=== PATIENT | male | born 1960 | race Hispanic/Latino ===

== ENCOUNTER 2017-04-15 05:02 | Observation (INO) | payer SELFPAY ==
[2017-04-15 06:16] LABS: #Lymphocytes 0.7 thou/uL (1.20-3.40); #Monocytes 0.6 thou/uL (0.11-0.59); #Neutrophils 7.2 thou/uL (1.40-6.50); %Basophils 0.2 % (0.0-1.0); %Eosinophils 0.1 % (0.0-10.0); %Lymphocytes 7.9 % (21.0-51.0); %Monocytes 7.3 % (0.0-10.0); %Neutrophils 84.5 % (42.0-75.0); ALT (SGPT) 80 U/L (8-55); AST (SGOT) 263 U/L (5-34); Albumin 2.5 g/dL (3.5-5.0); Alkaline Phosphatase 128 U/L (40-150); Anion Gap 14 mmol/L (10-20); BUN (Urea Nitrogen) 13 mg/dL (8.4-25.7); Bilirubin, Total 6.1 mg/dL (0.2-1.2); Calc. Creatinine Clearance 0 mL/min (70-130); Calcium 7.7 mg/dL (7.8-10.44); Carbon Dioxide 23 mmol/L (22-29); Chloride 99 mmol/L (98-107); Estimated GFR-MDRD Greater than 90; Globulin 4.8 g/dL (2.4-3.5); Glucose 117 mg/dL (70-105); Hemoglobin 13.3 g/dL (14.0-18.0); Mean Corpuscular HGB CONC 32.1 g/dL (32.0-36.0); Mean Corpuscular Hemoglobin 31.6 pg (27.0-31.0); Mean Corpuscular Volume 98.5 fl (80.0-94.0); Mean Platelet Volume 10.5 fL (7.4-10.4); Platelet Count 24 thou/uL (130-400); Potassium 4.6 mmol/L (3.5-5.1); Protein, Total 7.3 g/dL (6.0-8.3); RBC Distribution Width 22.1 % (11.5-14.5); Red Blood Cell (RBC) Count 4.19 mill/uL (4.70-6.10); Sodium 131 mmol/L (136-145); White Blood Cell (WBC) Count 8.6 thou/uL (4.8-10.8)
[2017-04-15 06:53] LABS: PTT 36.5 SEC (22.9-36.1)
[2017-04-15 07:10] LABS: Troponin I 0.033 ng/mL (< 0.028)
[2017-04-15 07:21] LABS: CKMB 21.3 ng/mL (0-6.6)
[2017-04-15] MEDS ORDERED: Furosemide 40 MG/4 ML VIAL ONE (09:10)
--- NOTE | 2017-04-15 09:19 | RAD ---
SINGLE VIEW CHEST: Date: 04/15/17 COMPARISON: 03/24/16. HISTORY: Shortness of breath that began suddenly this morning and dyspnea. FINDINGS: Single view of the chest shows a normal sized cardiomediastinal silhouette. There is no evidence of c onsolidation, mass, or pleural effusion. The bones are unremarkable. IMPRESSION: No evidence of acute cardiopulmonary disease. POS: [facility]
[2017-04-15 09:34] LABS: Hemoglobin A1c 5.4 % (4.0-6.0)
[2017-04-15 09:41] LABS: Troponin I 0.029 ng/mL (< 0.028)
[2017-04-15 09:45] LABS: CKMB 16.2 ng/mL (0-6.6)
[2017-04-15 10:56] LABS: Lactic Acid 2.4 mmol/L (0.5-2.2)
[2017-04-15 11:06] LABS: Troponin I 0.028 ng/mL (< 0.028)
[2017-04-15] MEDS ORDERED: Acetaminophen 325 MG TAB PO PRN (11:17)
[2017-04-15] MEDS ORDERED: Ondansetron ODT 4 MG TAB PO PRN (11:17)
[2017-04-15] MEDS ORDERED: Famotidine 20 MG TAB PO SCH (11:30)
[2017-04-15 12:14] VITALS: BMI 36.8
[2017-04-15] MEDS: Nadolol 40 MG TAB PO SCH ×2 (12:22→20:36)
[2017-04-15] MEDS: Furosemide 40 MG/4 ML VIAL SLOW IVP SCH ×3 (12:22→20:23)
[2017-04-15] MEDS: Spironolactone 25 MG TAB PO SCH (12:22)
[2017-04-15 13:14] LABS: Troponin I 0.026 ng/mL (< 0.028)
--- NOTE | 2017-04-15 15:51 | HP ---
DATE OF ADMISSION: 04/15/2017 PRIMARY CARE PHYSICIAN: Rocio. CHIEF COMPLAINT: Shortness of breath. HISTORY OF PRESENT ILLNESS: Mr. Riley is a 57-year-old male with history of hepatiti s C, cirrhosis, prior upper gastrointestinal bleed, portal hypertensive gastropathy, and possible tangela betes, who presented to the emergency department via EMS for 24 hours of shortness of breath. The patient relates a history of increasing bilateral lower extremity edema for about a week. He saw his PCP and was restarted medicines yesterday. He has had increasing shortness of breath, so presen nohelia to the emergency department via EMS. He was noted to be hypoxic, bilateral lower extremity edema, bilateral rales, and we were subsequentl y called for admission. Per patient history, he tells me he has been off his medicines for about a month. He got them refill ed yesterday and took x1 dose, but continued to be short of breath. Per the records, EMS gave him 125 mg Solu-Medrol IV, 0.3 mg of epinephrine IM, sublingual nitroglycer in x2 and 4 DuoNebs. Currently, he received IV Lasix in the ER, has good urine output and is breathing much better, sattin g well on 2 liters. No other current complaints. Denies any chest pain, nausea or vomiting, diarrhe a or constipation. No sweats or diaphoresis. PAST MEDICAL HISTORY: 1. Hepatitis C, untreated. 2. Cirrhosis, untreated. 3. Portal hypertensive gastropathy. 4. History of upper GI variceal bleeding. 5. Possible diabetes. 6. Ongoing alcohol abuse. PAST SURGICAL HISTORY: Includes an EGD with liver banding of a grade III esophageal varices on 04/29. HOME MEDICATIONS: 1. Nadolol 40 mg p.o. b.i.d. 2. Lasix 40 mg p.o. daily. 3. Aldactone 50 mg p.o. daily. ALLERGIES: NKDA. FAMILY HISTORY: Negative for clotting or bleeding disorder. No immune dysfunction. SOCIAL HISTORY: Alcohol about a 6-pack per day. No IV drug use. No tobacco. No family currently. REVIEW OF SYSTEMS: A 10-point review of systems was performed, negative for all other systems except stated per HPI. PHYSICAL EXAMINATION: VITAL SIGNS: Temperature 99.6, pulse 86, blood pressure 110/99, respiratory 28, 95% on 2 liters nasa l cannula. GENERAL: He is awake. He is alert. He is oriented x3. He is a disheveled looking m ana rosa, in no acute distress. HEENT: Normocephalic, atraumatic. Pupils equal and reactive bilaterally. Mucous membranes are mois t. He has what looks like mild scleral icterus. NECK: Supple. There is no lymphadenopathy, JVD or thyromegaly. LUNGS: Good air movement bilaterally with symmetrical chest excursion. There are no wheezes. He reed s bilateral lateral and posterior rales present. CARDIOVASCULAR: He is normocardic and regular. Normal S1 and S2. I hear no S4. No S3. No murmurs . ABDOMEN: Soft, nontender, nondistended. No mass or organomegaly. No rebound, rigidity or guarding. EXTREMITIES: Show 2+ edema in the bilateral lower extremities. He has 2+ bounding pulses. SKIN: Otherwise warm, moist, and well perfused. He has no other rashes or lesions. NEUROLOGIC: Cranial nerves II-XII are grossly intact without any focal neurologic deficits. MUSCULOSKELETAL: Normal to inspection. No joint inflammation. No palpable effusions. LABORATORY DATA: CMP is fairly normal. Creatinine 0.84, sodium 131, potassium 4.6, chloride 99, bic arbonate 23, glucose 103 and calcium normal. Albumin is low at 2.5. CBC showed a white count of 8.6, platelet count 24,000, hemoglobin of 13.2, hematocrit of 41.3. BNP is elevated at 784.1. Lactic acid 2.9. CK-MB of 21.3, troponin I 0.033. INR is 2.0. Chest x-ray report is pending. It looks like bilateral pulmonary edema. ASSESSMENT AND PLAN: 1. Acute hypoxemic respiratory failure secondary to volume overload and diastolic congestive heart f ailure. 2. Acute on chronic diastolic congestive heart failure secondary to cirrhosis. 3. Medical noncompliance. The patient has been off his medicines for a month, likely just deficienc y of his regular Lasix and Aldactone. 4. Chronic alcohol abuse. 5. Possible diabetes mellitus type 2, normal sugar here. Watch his sugars. 6. Thrombocytopenia secondary to cirrhosis. 7. Chronic hepatitis C. 8. History of esophageal varices, grade III, no evidence of current bleed. 9. Abnormal troponin, CK-MB, likely demand ischemia. We will trend these out.
[2017-04-15 17:50] LABS: CKMB 16.3 ng/mL (0-6.6)
[2017-04-15] MEDS: Famotidine 20 MG TAB PO SCH (20:23)
[2017-04-15] MEDS ORDERED: FLU VACC QS2017-18 36 mo. & older 0.5 ML SYRINGE IM ONE (21:00)
[2017-04-16 01:20] LABS: Troponin I 0.019 ng/mL (< 0.028)
[2017-04-16 01:22] LABS: CKMB 16.6 ng/mL (0-6.6)
[2017-04-16 05:34] LABS: Anion Gap 11 mmol/L (10-20); BUN (Urea Nitrogen) 28 mg/dL (8.4-25.7); Calc. Creatinine Clearance 146 mL/min (70-130); Calcium 7.1 mg/dL (7.8-10.44); Carbon Dioxide 24 mmol/L (22-29); Chloride 97 mmol/L (98-107); Estimated GFR-MDRD Greater than 90; Glucose 173 mg/dL (70-105); Magnesium 1.6 mg/dL (1.6-2.6); Potassium 4.1 mmol/L (3.5-5.1); Sodium 128 mmol/L (136-145)
[2017-04-16 06:32] LABS: Hemoglobin 11.8 g/dL (14.0-18.0); Mean Corpuscular HGB CONC 31.8 g/dL (32.0-36.0); Mean Corpuscular Hemoglobin 31.1 pg (27.0-31.0); Mean Corpuscular Volume 97.6 fl (80.0-94.0); Mean Platelet Volume 16.3 fL (7.4-10.4); Platelet Count 13 thou/uL (130-400); RBC Distribution Width 21.8 % (11.5-14.5); Red Blood Cell (RBC) Count 3.81 mill/uL (4.70-6.10)
[2017-04-16 06:53] LABS: #Lymphocytes 0.6 thou/uL (1.20-3.40); #Monocytes 0.7 thou/uL (0.11-0.59); #Neutrophils 5.7 thou/uL (1.40-6.50); %Lymphocytes 8.9 % (21.0-51.0); %Monocytes 10.3 % (0.0-10.0); %Neutrophils 80.8 % (42.0-75.0); PLT Morphology Comment Appears Decreased
[2017-04-16] MEDS ORDERED: Furosemide 40 MG TAB PO SCH (09:00)
[2017-04-16] MEDS: Nadolol 40 MG TAB PO SCH (09:27)
[2017-04-16] MEDS: Famotidine 20 MG TAB PO SCH (09:27)
[2017-04-16] MEDS: Spironolactone 25 MG TAB PO SCH (09:27)
--- NOTE | 2017-04-16 11:55 | DIS ---
DATE OF ADMISSION: 04/15/2017 DATE OF DISCHARGE: 04/16/2017 DISCHARGE DIAGNOSES: 1. Acute pulmonary edema secondary to medical nonadherence. 2. Hypertension. 3. Hepatitis C. 4. Cirrhosis. 5. Thrombocytopenia secondary to cirrhosis. 6. Acute hypoxemic respiratory failure, resolved. 7. Medical nonadherence. CONSULTATIONS: None. PROCEDURES: None. HOSPITAL COURSE: Mr. Riley is a 57-year-old male with cirrhosis who has been out of his medicines for over a month. He has not been taking his nadolol, Lasix, or spironolactone. He be came acutely short of breath on 04/15/2017, after a week of increasing shortness of breath. EMS was activated. He was hypoxic on their arrival and was requiring oxygen to maintain saturations. In the emergency department, he was given IV Lasix. We are called for admission. The patient was seen and examined by me. She was placed in observation and restarted his home medica tions. He received IV Lasix overnight and restarted on p.o. medicines today. Today, his lungs are c ompletely clear, he is feeling much better and was weaned off oxygen, satting 90% on room air. He wa s stable for discharge with outpatient followup. PHYSICAL EXAMINATION: The patient was seen and examined on the day of discharge. Discharge plan and disposition were discussed with the patient [id number] at the bedside. DISCHARGE MEDICATIONS: 1. Nadolol 40 mg p.o. b.i.d. 2. Lasix 40 mg p.o. daily. 3. Spironolactone 50 mg p.o. daily. DISCHARGE DIET: Heart healthy recommended. DISCHARGE ACTIVITY: Per cardiopulmonary limits. FOLLOWUP APPOINTMENTS: Dyana, his primary care physician within a week. DISCHARGE CONDITION: Stable. DISPOSITION: He is being discharged home via private vehicle for outpatient followup. INSTRUCTIONS: Take medicines as prescribed. He has had them filled on 04/15/2017 and does has a [facility] [employer] supply.
[2017-04-16 12:28] VITALS: BP 145/86; TEMP 98.1
--- NOTE | 2017-04-25 21:51 | EKG ---
Test Reason : Blood Pressure : / mmHG Vent. Rate : 085 BPM Atrial Rate : 085 BPM P-R Int : 146 ms QRS Dur : 084 ms QT Int : 418 ms P-R-T Axes : 009 047 057 degrees QTc Int : 497 ms Normal sinus rhythm Prolonged QT Abnormal ECG Confirmed by JF TAO ([id number]), photographic editor AXEL HERNANDEZ ([id number]) on 04/25/2017 9:50:07 PM Referred By: Confirmed By:JF TAO
== END 2017-04-16 13:55 | disposition home or self-care (01) ==
LOC: ERS 05:02 → ERHOLD 08:00 → INTOOBSV 08:00 → 2SW 11:57
PROVIDERS: ADMIT Family Medicine; ATTEND Family Medicine
DX: J81.0 Acute pulmonary edema (principal); I10 Essential (primary) hypertension; B19.20 Unspecified viral hepatitis C without hepatic coma; K74.60 Unspecified cirrhosis of liver; D69.6 Thrombocytopenia, unspecified; J96.01 Acute respiratory failure with hypoxia; K76.6 Portal hypertension; K31.89 Other diseases of stomach and duodenum; F10.10 Alcohol abuse, uncomplicated; I50.33 Acute on chronic diastolic (congestive) heart failure; Z91.14 Patient's other noncompliance with medication regimen; Z79.899 Other long term (current) drug therapy; Z98.890 Other specified postprocedural states
CPT/HCPCS: 36415; 71045; 80048; 80053; 82553; 83036; 83605; 83735; 83880; 84484; 85025; 85610; 85730; 90471; 90682; 90732; 93005; 93306; 94640; 94760; 96374; 96376; G0008; G0009; G0378; J1940; J7620; Q2036

== ENCOUNTER 2018-01-19 07:33 | Inpatient (IN) | payer SELFPAY ==
[2018-01-19 09:36] LABS: #Lymphocytes 0.7 thou/uL (1.20-3.40); #Monocytes 0.5 thou/uL (0.11-0.59); #Neutrophils 2.4 thou/uL (1.40-6.50); %Basophils 0.7 % (0.0-1.0); %Eosinophils 0.7 % (0.0-10.0); %Monocytes 14.7 % (0.0-10.0); Hemoglobin 10.5 g/dL (14.0-18.0); Mean Corpuscular HGB CONC 32.5 g/dL (32.0-36.0); Mean Corpuscular Hemoglobin 32.8 pg (27.0-31.0); Platelet Count 34 thou/uL (130-400); RBC Distribution Width 19.6 % (11.5-14.5); Red Blood Cell (RBC) Count 3.22 mill/uL (4.70-6.10); White Blood Cell (WBC) Count 3.7 thou/uL (4.8-10.8)
[2018-01-19 09:39] LABS: ALT (SGPT) 27 U/L (8-55); AST (SGOT) 83 U/L (5-34); Albumin 2.4 g/dL (3.5-5.0); Alkaline Phosphatase 108 U/L (40-150); Anion Gap 10 mmol/L (10-20); BUN (Urea Nitrogen) 5 mg/dL (8.4-25.7); Bilirubin, Total 9.5 mg/dL (0.2-1.2); Calc. Creatinine Clearance 0 mL/min (70-130); Calcium 7.6 mg/dL (7.8-10.44); Carbon Dioxide 24 mmol/L (22-29); Chloride 103 mmol/L (98-107); Estimated GFR-MDRD Greater than 90; Glucose 107 mg/dL (70-105); Potassium 3.8 mmol/L (3.5-5.1); Protein, Total 6.4 g/dL (6.0-8.3); Sodium 133 mmol/L (136-145)
[2018-01-19 09:43] LABS: CKMB 2.5 ng/mL (0-6.6); Troponin I Less than 0.010 ng/mL (< 0.028)
[2018-01-19 09:46] LABS: Ovalocytes SLIGHT = 2-5 cells (100X) (0-1/hpf); Polychromasia SLIGHT = 2-3 cells (100X) (0-2/hpf)
[2018-01-19 10:37] LABS: INR-International Normal Ratio 2.2; PTT 37.9 SEC (22.9-36.1); Prothrombin Time 24.4 SEC (12.0-14.7)
[2018-01-19] MEDS ORDERED: Senokot S 8.6-50 MG TAB PO PRN (11:57)
[2018-01-19] MEDS ORDERED: HumaLOG 300 UNITS/3 ML VIAL SC PRN (11:59)
[2018-01-19] MEDS ORDERED: Dextrose 50% Abboject 50 ML SYRINGE SLOW IVP PRN (11:59)
[2018-01-19] MEDS ORDERED: Dextrose 5% in Water 1,000 ML IV PRN (11:59)
--- NOTE | 2018-01-19 12:40 | HP ---
PRIMARY CARE PHYSICIAN: [facility] CHIEF COMPLAINT: Bleeding gums. HISTORY OF PRESENT ILLNESS: Mr. Riley is a pleasant 57-year-old gentleman who was seen at [facility] on 01/19/2018. He has a history of hepatitis C. He reports that he has been having bleeding gums for the last 2 day s. He also reports that last week he was wearing plastic covers over his shoes and tripped and fell and hit the left side of his chest. He denies loss of consciousness or hitting his head. He reports having leg swelling for the last 2 weeks. He denies any fevers or chills. He mainly pres ented to the emergency room because of ongoing bleeding from the gums. REVIEW OF SYSTEMS: All other systems reviewed and found to be negative. PAST MEDICAL HISTORY: Hypertension, diabetes mellitus type 2, cirrhosis and hepatitis C. PAST SURGICAL HISTORY: He appears to have had esophageal variceal banding in the past. SOCIAL HISTORY: The patient denies tobacco use or recreational drug use. He drinks a 6 pack of beer a day. ALLERGIES: No known drug allergies. CURRENT MEDICATIONS: The patient does not appear to be taking his medications recently. He is unabl e to tell me how many days he has not been taking his medications. Previously he was on nadolol 40 m g 2 times a day, furosemide 40 mg daily and spironolactone 50 mg daily. FAMILY HISTORY: Undisclosed cancer in his mother, prostate cancer in his father. PHYSICAL EXAMINATION: GENERAL: Mr. Riley is awake and alert, not in acute distress. VITAL SIGNS: Blood pressure is 141/79, pulse 100, respiratory rate 16, and oxygen saturation 98% on room air. He is afebrile. EYES: He has scleral icterus. No conjunctival pallor. ENT: Moist mucosal membranes. He has blood oozing from the medial aspect of the right upper molars. No oropharyngeal exudates. NECK: Supple, nontender. Trachea is midline. RESPIRATORY: Accessory muscles of breathing are not active. Chest wall movements are symmetric bila terally. LUNGS: Clear to auscultation without wheeze, rhonchi or crepitations. CARDIOVASCULAR: S1 and S2 are heard, regular. Peripheral pulses palpable. No carotid bruit, no per icardial rub. ABDOMEN: Soft, distended, nontender, bowel sounds heard, no hepatomegaly, no splenomegaly. NEUROLOGIC: Cranial nerves II-XII intact, deep tendon reflexes 2+. MUSCULOSKELETAL: Power is 5/5 in all 4 extremities. He has bilateral lower extremity edema. SKIN: No rashes or subcutaneous nodules. LYMPHATIC: No cervical lymphadenopathy. PSYCHIATRIC: Normal mood, normal affect, patient is oriented to person and place, not to time. DATABASE: Mr. Riley's labs and investigations were reviewed. He has pancytopenia, with white count 3700, hemoglobin 10.5, and platelet count 34,000. Last known platelet count was 13,000 on 8. INR is elevated at 2.2. Sodium is decreased at 133. He has normal creatinine, elevated total bi lirubin of 9.5, last known total bilirubin 6.1 on 04/15/2017, elevated AST of 83, normal ALT of 27, n ormal alkaline phosphatase, decreased albumin of 2.4 and elevated globulin level of 4.0. Corrected c alcium for albumin is in the normal range at 8.9. PTT is elevated at 37.9. ASSESSMENT AND PLAN: Mr. Riley is a pleasant 57-year-old gentleman who was seen at [facility] on 01/19/2018. His problem list includes: 1. Coagulopathy: Mr. Riley is presenting with coagulopathy secondary to combination of liver disea se and thrombocytopenia. He will be admitted to the hospital for further management. He will receiv e FFP transfusion as well as platelet transfusion. I will recheck his blood counts. 2. Cirrhosis: Most likely a combination of hepatitis C and alcohol abuse. His MELD score is 26. I discussed with him the need to stop alcohol use. I will consult GI Service for help with further ma nagement. 3. Diabetes mellitus type 2. We will start Accu-Cheks and insulin sliding scale. 4. Medication noncompliance. The patient has been counseled regarding medication noncompliance. We will resume his home medications. Many thanks for allowing me to participate in your patient's care. Please feel free to contact me wi th any questions or concerns. LEVEL OF RISK: Moderate. LEVEL OF COMPLEXITY: Moderate.
[2018-01-19] MEDS ORDERED: Ondansetron ODT 4 MG TAB PO PRN (13:33)
[2018-01-19] MEDS ORDERED: Acetaminophen 325 MG TAB PO PRN (13:33)
[2018-01-19] MEDS ORDERED: Ondansetron PF 4 MG/2 ML Vial IVP PRN (13:33)
[2018-01-19 15:43] LABS: Reticulocyte Count 4.1 % (0.5-1.5)
[2018-01-19 16:07] LABS: Iron 238 ug/dL (65-175); Iron Binding Capacity, Total 236 mcg/dL (261-462)
[2018-01-19 16:22] LABS: Free T4 (Free Thyroxine) 0.99 ng/dL (0.70-1.48); Thyroid Stimulating Hormone 1.1173 uIU/mL (0.35-4.94)
[2018-01-19 16:24] LABS: HIV (1/2) Antibody/Antigen Non-Reactive (NonReactive); HIV 1/2 INDEX 0.12 S/CO (<1.00)
[2018-01-19 16:40] LABS: Folate (Folic Acid) 8.4 ng/mL (7.0-31.4)
[2018-01-19] MEDS ORDERED: Octreotide Acetate 100 MCG/ML VIAL SLOW IVP SCH (16:48)
--- NOTE | 2018-01-19 16:49 | ULT ---
ABDOMINAL ULTRASOUND COMPLETE: 01/19/18 HISTORY: 57-year-old male with history of anemia. COMPARISON: Prior CT angio of chest 03/21/16. FINDINGS: The liver is small, very heterogeneous, and nodular with some marginal nodularity, evidence for [place] cirrhosis. The possibility of a small neoplastic mass or masses within the liver would be difficu lt to exclude from this ultrasound study. If there is concern for associated hepatoma, a followup [facility] CT scan with liver mass protocol is recommended for further assessment in that regard. The ga llbladder shows some diffuse gallbladder wall thickening and edematous changes which may well be rela nohelia to the fairly extensive ascites. There is some small gallstones noted which are mobile. There is flow within the portal vein which appears to be antegrade. Pancreas region is mostly obscured. The vi sualized IVC, and aorta are unremarkable. Marked splenomegaly up to 18 cm. No renal hydronephrosis. N o common bile duct dilatation. IMPRESSION: Markedly nodular small liver, evidence for cirrhosis. Fairly extensive ascites. Diffuse gallbladder w all thickening probably related to gallbladder wall edematous changes secondary to ascites. Small mob ile gallstones within the gallbladder without ductal dilatation. Marked splenomegaly. Antegrade jenise l venous flow in the main portal vein. POS: [facility]
[2018-01-19] MEDS: cefTRIAXone\\ROCEPHIN 1 GM in Sodium Chloride 0.9% 100 ML IVPB SCH (18:06)
[2018-01-19] MEDS: Octreotide Acetate 1,250 MCG in Sodium Chloride 0.9% 250 ML 250 ML IVPB SCH (19:34)
[2018-01-19] MEDS: Multivitamins, Adult 10 ML, Folic Acid 1 MG, Thiamine HCl 100 MG in Dextrose 5 %-0.45 %... IV SCH (19:34)
[2018-01-19] MEDS: Nadolol 40 MG TAB PO SCH (20:44)
[2018-01-19] MEDS: Pantoprazole 40 MG VIAL IVP SCH (20:45)
--- NOTE | 2018-01-19 20:54 | CON ---
DATE OF CONSULTATION: 01/19/2018 REASON FOR CONSULTATION: Pancytopenia. HISTORY OF PRESENT ILLNESS: A 57-year-old male with history of hepatitis C, cirrhosis, and alcohol abuse, presenting with gum bleeding. The patient states that he has had gum bleeds every couple of months for a long time and typically, he can hold pressure to his gums and it will stop; however, starting a couple of days ago, he began having gum bleeding that did not respond to this and continued to bleed and so he came to the ER. The patient also states he recently tripped and fell landing on the left side of chest and has had a large bruise since then. The patient states he otherwise feels okay. He denies any other symptoms including nausea, vomiting, diarrhea, and constipation. The patient states he has been told he had low blood counts in the past, but says he was never told why. He also states he never received treatment for his hepatitis C. He states he has never used IV drugs; however, he does drink two 24-ounce beers once a week; however, says up until a couple of years ago, he used to drink 15 to 20 of those beers every day. REVIEW OF SYSTEMS: Ten-point review of systems negative except as per HPI. PAST MEDICAL HISTORY: Chronic pancytopenia, cirrhosis, hepatitis C, hypertension, and diabetes. PAST SURGICAL HISTORY: Variceal banding. SOCIAL HISTORY: Former heavy alcohol abuse, currently drinks two 24-ounce beers once or twice a week. Denies illicit drug use or tobacco. ALLERGIES: No known drug allergies. CURRENT MEDICATIONS: Reviewed. FAMILY HISTORY: Prostate cancer in his mother. PHYSICAL EXAMINATION: VITAL SIGNS: Temperature 98.3, pulse 100, respirations 16, satting 100% on room air, blood pressure 166/83. GENERAL APPEARANCE: The patient is sitting up in bed in no acute distress. HEENT: Scleral icterus positive. No conjunctival pallor. Very slow oozing from the medial aspect of the right upper molars. RESPIRATORY: Clear to auscultation bilaterally without wheezes, rales, or rhonchi. CARDIOVASCULAR: S1, S2. No murmurs, rubs, or gallops. ABDOMEN: Soft, nontender, no palpable organomegaly, obese. EXTREMITIES: 2+ edema in the bilateral lower extremities. SKIN: Large ecchymosis on left lateral side of the chest. LYMPHATIC: No lymphadenopathy. NEUROLOGIC: Cranial nerves II-XII grossly intact, otherwise nonfocal. PSYCHIATRIC: Awake, alert, and oriented x3. LABORATORY DATA: White blood cells 3.7, previously 7.0 in March of this year , hemoglobin 10.5 from 11.8 in March of this year and in March and April of 2015, his hemoglobin ranged from 6.1-7.6. In February 2016, it was normal at 14.1, platelets of 13 in March 2017, and baseline over the last few years has been 50-75, PT 24.4. INR 2.2, PTT 37.9. Sodium 133, BUN 5, creatinine 0.60 , albumin 2.4, total bilirubin 9.5, AST 83, ALT 27, alkaline phosphatase 108. IMAGING DATA: Abdominal ultrasound read is currently pending. ASSESSMENT AND PLAN: A 57-year-old male with history of chronic pancytopenia, cirrhosis, hepatitis C, and alcohol abuse presenting with gum bleeding. The patient has baseline pancytopenia; however, his white blood cell count has previously been normal. His hemoglobin is currently 10.5, which is increased from a baseline of 6-7.5 for the last few years; however, this had increased to 11.8-13.3 in March of this year. The patient has baseline thrombocytopenia with counts of 50-60 that were as low as 13 in March of 2017 and are currently 34. The patient also has coagulopathy due to underlying cirrhosis with elevated PT, INR, and PTT. The patient has untreated hepatitis C which could be contributing to pancytopenia as well as severe cirrhosis with a MELD score of 26, which can cause pancytopenia, especially anemia with an elevated MCV. Thyroid disease can also contribute and the patient did have an elevated TSH a couple years ago and unknown if this was followed up at that time. Hypersplenism could also be contributing; however, unable to palpate the spleen on exam. The patient has had an abdominal ultrasound today, and we will follow this up. Would also rule out other causes of macrocytic anemia including B12, folate, and reticulocytosis. Agree with platelet transfusions and FFP to correct underlying coagulopathy and thrombocytopenia in the setting of ongoing bleed. I encouraged the patient to comply with complete cessation of alcohol and compliance with medications. We will follow up these results and the abdominal ultrasound. Thank you for this consult. WILLIAM
--- NOTE | 2018-01-20 02:43 | CON ---
DATE OF CONSULTATION: 01/19/2018 REASON FOR CONSULTATION: GI bleed. HISTORY OF PRESENT ILLNESS: Mr. Riley is a 57-year-old gentleman with cirrhosis from alcohol abuse who was seen at this hospital in 03/2015 for a GI bleed. At that time, he was found to have some eso phageal varices, which were banded. At that time, he was throwing up large amounts of blood and had blood per rectum and was drinking about 7 to 8 beers per day. He was transfused 2 units of blood at that time. He has not been back to follow up with us since that time, he presented to the emergency room today with complaints of bleeding from his mouth and gum that started on Thursday, two days ago. He states he did fall asleep on Thursday night, he swallowed a little blood and then coughed it back up , but he has not had any overt hematemesis, melena or hematochezia. He denies any fever or chills. He says that his belly has been swollen for about 2 weeks and he has had some swelling in his legs as well. Previously, he has been on some pills, but he ran out of those, though he had a 90-day refill . He goes to [place] for primary care. He still drinks beer, but stopped about 2 weeks ago by his re port. He denies any dysphagia, odynophagia, weight loss, fever or chills. He denies any pain in his teeth. REVIEW OF SYSTEMS: Negative for confusion. Neurologic: Negative for alteration in sleep cycle. Ne gative for seizures. Negative for focal weaknesses, change in mentation or memory. HEENT: No eye p ain, change in vision, discharge. Ear, nose and throat, within normal limits. Denies nose bleeding. Neck: Negative for stiffness and soreness. Cardiovascular: Negative for chest pain, shortness of breath, dyspnea on exertion, orthopnea. Respiratory: Negative for wheezing, asthma, cough, hemopty sis. Gastrointestinal: Negative for melena, hematochezia or hematemesis. Positive for distended ab domen. Genitourinary: Negative for dysuria, frequency, urgency. Musculoskeletal: Negative for erin e chronic back pain. Skin: Negative for rashes, lesions, or pruritus. PAST MEDICAL HISTORY: Cirrhosis, diabetes, hypertension. PAST SURGICAL HISTORY: Esophageal variceal banding. He has had a chest tube for fractured ribs in t he past. SOCIAL HISTORY: Drinks every day, 6 pack or more a day. States he last drunk about 2 weeks ago. ALLERGIES: None known. MEDICATIONS: At home is unclear. He is taking these, but he has prescription for nadolol 40 mg b.i. d., furosemide 40 mg daily, and spironolactone 50 mg a day. PRESENT MEDICATIONS HERE IN THE HOSPITAL: Tylenol, Lasix 40 daily, glucagon, Humalog, nadolol 40 mg p.o. b.i.d., Zofran, Senokot, Aldactone 50 mg a day. PHYSICAL EXAMINATION: VITAL SIGNS: Temperature is 98.3, pulse is 100, blood pressure 166/83. HEENT: Oropharynx notable for clot and looked sick and missing teeth on the right upper jaw line. T here is no tenderness. There is no pus seen. NECK: Supple, no adenopathy. LUNGS: Clear. HEART: Regular rate and rhythm without clicks or murmurs. ABDOMEN: Protuberant. There is no palpable hepatosplenomegaly or shifting dullness and fluid. EXTREMITIES: No edema. NEUROLOGIC: Negative for asterixis. Reflexes are normal. Strength is normal and symmetric. GENERAL: The patient is alert and oriented to person, place and time. SKIN: Without rash, lesions, or ecchymosis. LABORATORY STUDIES: White count 3.7, hemoglobin 10.5, it was 11.8 on 04/16/2017. MCV 101, platelet count 34,000. INR 2.2. Sodium 133, potassium 3.8. Creatinine is 5.6, AST and ALT are 83 and 27, bi lirubin is 9.5, 6.1 in March. Iron is 238, TIBC is 236, saturations 101. I will see previous iron stores in the computer. Ferritin is 153, albumin is 2.4, protein 6.4, . TSH 1. IMAGING STUDIES: Ultrasound of the abdomen for this afternoon that result is pending. ASSESSMENT: This is a gentleman with cirrhosis, decompensated, presumably from alcohol. Negative he patitis testing, he does have a positive C antibody in 2016, negative detectable level in 2016. He h ad variceal banding in 2016. He now returns with some bleeding from his gum and no signs of overt GI hemorrhage. He does have a coagulopathy. He does have ascites, which he reports is worse recently and his bilirubin is higher than it has been in the past. He does have elevated iron saturation, had an elevated serum iron, but a normal ferritin. It is unclear that the hemochromatosis is probably r elated to alcohol. RECOMMENDATIONS: 1. I agree with FFP that is being given. 2. We will start low dose of octreotide. 3. We will start a PPI. 4. We will proceed with EGD tomorrow as he has had varices in the past, but I think his bleeding is coming from his gum, if that continues despite fixing his platelet count and his coagulopathy, then mercedes stewart may need to be seen by oral surgery. 5. If patient continues to bleed, we will give him some platelets, only seems to have stopped at thi s point in time. 6. We will start him on empiric antibiotics. 7. The patient has ascites. He should be tapped for SBP. Antibiotics are related to oral bleeding in a cirrhotic increased risk of bacteremia. 8. The patient should be on DT precautions and he should also get a banana bag for nutritional purpo ses as he is an alcoholic.
[2018-01-20 05:09] LABS: Anion Gap 9 mmol/L (10-20); BUN (Urea Nitrogen) 7 mg/dL (8.4-25.7); Calc. Creatinine Clearance 85 mL/min (70-130); Calcium 7.5 mg/dL (7.8-10.44); Carbon Dioxide 24 mmol/L (22-29); Chloride 104 mmol/L (98-107); Estimated GFR-MDRD Greater than 90; Glucose 130 mg/dL (70-105); Potassium 4.1 mmol/L (3.5-5.1); Sodium 133 mmol/L (136-145)
[2018-01-20 05:11] LABS: Hemoglobin 9.7 g/dL (14.0-18.0); Hypochromia SLIGHT = 6-15 cells (100X) (0-5/hpf); Lymphocytes 18 % (21-51); MDiff Complete? YES; Macrocytosis SLIGHT = 6-15 cells (100X) (0-5/hpf); Mean Corpuscular HGB CONC 32.6 g/dL (32.0-36.0); Mean Corpuscular Hemoglobin 33.2 pg (27.0-31.0); Mean Platelet Volume 7.3 fL (7.4-10.4); Neutrophil 82 % (42-75); PLT Morphology Comment Appears Decreased; Platelet Count 37 thou/uL (130-400); Polychromasia SLIGHT = 2-3 cells (100X) (0-2/hpf); RBC Distribution Width 19.6 % (11.5-14.5); Red Blood Cell (RBC) Count 2.94 mill/uL (4.70-6.10); Target Cells SLIGHT = 2-5 cells (100X) (0-1/hpf); White Blood Cell (WBC) Count 4.3 thou/uL (4.8-10.8)
[2018-01-20] MEDS: Nadolol 40 MG TAB PO SCH ×2 (05:36→20:51)
[2018-01-20] MEDS: Furosemide 40 MG TAB PO SCH (08:41)
[2018-01-20] MEDS: Spironolactone 25 MG TAB PO SCH (08:41)
[2018-01-20] MEDS: Pantoprazole 40 MG VIAL IVP SCH ×2 (08:42→20:51)
[2018-01-20 08:45] LABS: INR-International Normal Ratio 2.2; Prothrombin Time 24.3 SEC (12.0-14.7)
[2018-01-20 13:28] VITALS: BMI 39.9
[2018-01-20] MEDS ORDERED: Midazolam HCl 2 mg/2 ml Vial ONE (14:20)
--- NOTE | 2018-01-20 15:03 | OP ---
DATE OF PROCEDURE: 01/20/2018 PROCEDURE: Esophagogastroduodenoscopy with banding of esophageal varices. PREOPERATIVE DIAGNOSIS: Gastrointestinal bleed and anemia of acute blood loss. OPERATIVE NOTE: Informed consent was obtained from the patient, but he was sedated with total intrav enous anesthesia. The bite block was placed and the endoscope was advanced easily to the second port ion of the duodenum and retroflexion was performed in the stomach. The esophagus had a large grade 3 varix, which was banded in 2 places in the distal 5 cm of the esophagus. The stomach was normal inc luding retroflexed views. The pylorus and first and second portions of the duodenum were normal. IMPRESSION: 1. Large grade 3 varix in the distal esophagus, banded twice. 2. Otherwise normal esophagogastroduodenoscopy. There is no active bleeding. RECOMMENDATIONS: 1. Continue octreotide. 2. Continue ceftriaxone. 3. Diagnostic paracentesis if possible. 4. Follow trend of the hemoglobin.
[2018-01-20] MEDS ORDERED: PROPOFOL 200 MG/20 ML VIAL ONE (15:15)
--- NOTE | 2018-01-20 17:37 | PDOC.PN ---
- Subjective Encounter Start Date: 01/20/18 Encounter Start Time: 10:00 Pt seen for followup re: coagulopathy. Denies chest pain, shortness of breath, fevers or chills. - Objective MAR Reviewed: Yes Vital Signs & Weight: Vital Signs (12 hours) Temp Pulse Resp BP BP Pulse Ox 01/20/18 15:00 162/76 H 01/20/18 14:50 98.1 F 72 16 162/76 H 96 01/20/18 12:40 98.6 F 66 14 145/77 H 97 01/20/18 11:40 98.1 F 68 16 136/72 97 01/20/18 08:00 97 01/20/18 07:38 97.9 F 70 16 155/77 H 98 Weight Admit Weight 100 lb 3.2 oz Weight 211 lb I&O: 01/19/18 01/20/18 01/21/18 06:59 06:59 06:59 Intake Total 2420 250 Output Total 400 Balance 2019 250 Result Diagrams: 01/20/18 03:38 01/20/18 03:38 Additional Labs: Accuchecks 01/20/18 01/20/18 01/20/18 16:50 11:20 05:35 POC Glucose 120 H 137 H 138 H 01/19/18 21:26 POC Glucose 135 H labs reviewed by me Phys Exam - Physical Examination Constitutional: NAD HEENT: moist MMs, sclera anicteric, oral pharynx no lesions, 2+ tonsils Neck: no nodes, no JVD, supple, full ROM Respiratory: no wheezing, no rales, no rhonchi, clear to auscultation bilateral Cardiovascular: RRR, no rub S1, S2 Gastrointestinal: soft, non-tender, positive bowel sounds distention Neurological: moves all 4 limbs Psychiatric: normal affect Dx/Plan (1) Coagulopathy Status: Acute Comment: secondary to liver disease and thrombocytopenia. (2) Alcohol abuse Code(s): F10.10 - ALCOHOL ABUSE, UNCOMPLICATED Status: Chronic Comment: pt is on ASE protocol (3) Cirrhosis Code(s): K74.60 - UNSPECIFIED CIRRHOSIS OF LIVER Status: Chronic Comment: For EGD to evaluate varices (4) HTN (hypertension) Code(s): I10 - ESSENTIAL (PRIMARY) HYPERTENSION Status: Chronic Comment: start PRN IV hydralazine (5) Thrombocytopenia Code(s): D69.6 - THROMBOCYTOPENIA, UNSPECIFIED Status: Chronic Comment: s/p platelet transfusion - Plan * . Review of Systems - Review of Systems Constitutional: negative: fever, chills, sweats, weakness, malaise ENT: Other (gum bleeding) Respiratory: negative: Cough, Shortness of Breath, SOB with Excertion, Pleuritic Pain, Wheezing Cardiovascular: negative: chest pain, palpitations, orthopnea, paroxysmal nocturnal dyspnea, edema, light headedness Gastrointestinal: negative: Nausea, Vomiting, Abdominal Pain, Diarrhea, Constipation, Melena, Hematochezia Genitourinary: negative: Dysuria, Frequency, Incontinence, Hematuria, Retention Skin: negative: Rash, Lesions, Edgar, Bruising - Medications/Allergies Allergies/Adverse Reactions: Allergies Allergy/AdvReac Type Severity Reaction Status Date / Time No Known Drug Allergies Allergy Verified 04/29/15 04:06 Medications: Current Medications Dextrose/Water (Dextrose 50%) 25 gm SLOW IVP PRN PRN PRN Reason: Hypoglycemia Furosemide (Lasix) 40 mg PO DAILY [facility] Last Admin: 01/20/18 08:41 Dose: 40 mg Glucagon (Glucagon) 1 mg IM PRN PRN PRN Reason: Hypoglycemia Dextrose/Water (D5w) 1,000 mls @ 0 mls/hr IV .Q0M PRN PRN Reason: Hypoglycemia Multivitamins 10 ml/ Folic Acid 1 mg/ Thiamine HCl 100 mg / Dextrose/Sodium Chloride 1,011.2 mls @ 75 mls/hr IV 1800 [facility] Last Admin: 01/19/18 19:34 Dose: 1,011.2 mls Octreotide Acetate 1,250 mcg/ (Sodium Chloride) 251.25 mls @ 10.05 mls/hr IVPB INF [facility] Last Admin: 01/19/18 19:34 Dose: 251.25 mls Ceftriaxone Sodium 1 gm/ (Sodium Chloride) 100 mls @ 200 mls/hr IVPB 1830 [facility] Stop: 01/28/18 18:59 Last Admin: 01/19/18 18:06 Dose: 100 mls Insulin Human Lispro (Humalog) 0 units SC .MILD SLIDING SCALE PRN PRN Reason: Mild Correctional Scale Nadolol (Corgard) 40 mg PO BID [facility] Last Admin: 01/20/18 05:36 Dose: 40 mg Pantoprazole Sodium (Protonix) 40 mg IVP Q12HR [facility] Last Admin: 01/20/18 08:42 Dose: 40 mg Senna/Docusate Sodium (Senokot S) 2 tab PO BID PRN PRN Reason: Constipation Sodium Chloride (Flush - Normal Saline) 10 ml IVF Q12HR [facility] Last Admin: 01/20/18 08:42 Dose: 10 ml Sodium Chloride (Flush - Normal Saline) 10 ml IVF PRN PRN PRN Reason: Saline Flush Sodium Chloride (Flush - Normal Saline) 10 ml IVF PRN PRN PRN Reason: Saline Flush Spironolactone (Aldactone) 50 mg PO DAILY [facility] Last Admin: 01/20/18 08:41 Dose: 50 mg Thiamine HCl (Thiamine Hcl) 100 mg SLOW IVP Q24HR [facility]
[2018-01-20] MEDS ORDERED: hydrALAZINE 20 MG/ML VIAL SLOW IVP PRN (17:44)
[2018-01-20] MEDS ORDERED: Thiamine HCl 200 MG/2 ML VIAL SLOW IVP SCH (18:00)
[2018-01-20] MEDS: Multivitamins, Adult 10 ML, Folic Acid 1 MG, Thiamine HCl 100 MG in Dextrose 5 %-0.45 %... IV SCH (18:34)
[2018-01-20] MEDS: cefTRIAXone\\ROCEPHIN 1 GM in Sodium Chloride 0.9% 100 ML IVPB SCH (18:34)
[2018-01-20] MEDS: Octreotide Acetate 1,250 MCG in Sodium Chloride 0.9% 250 ML 250 ML IVPB SCH (22:06)
[2018-01-21 05:12] LABS: INR-International Normal Ratio 2.2; Prothrombin Time 24.6 SEC (12.0-14.7)
[2018-01-21 05:39] LABS: ALT (SGPT) 22 U/L (8-55); AST (SGOT) 65 U/L (5-34); Albumin 2.1 g/dL (3.5-5.0); Alkaline Phosphatase 88 U/L (40-150); Anion Gap 7 mmol/L (10-20); BUN (Urea Nitrogen) 7 mg/dL (8.4-25.7); Calc. Creatinine Clearance 167 mL/min (70-130); Calcium 7.4 mg/dL (7.8-10.44); Carbon Dioxide 27 mmol/L (22-29); Chloride 102 mmol/L (98-107); Estimated GFR-MDRD Greater than 90; Globulin 3.7 g/dL (2.4-3.5); Glucose 124 mg/dL (70-105); Protein, Total 5.8 g/dL (6.0-8.3); Sodium 132 mmol/L (136-145)
[2018-01-21 05:58] LABS: Anisocytosis SLIGHT = 6-15 cells (100X) (0-5/hpf); Band 17 % (5-11); Elliptocytes SLIGHT = 2-5 cells (100X) (0-1/hpf); Eosinophils 2 % (0-10); Hemoglobin 9.6 g/dL (14.0-18.0); Lymphocytes 18 % (21-51); MDiff Complete? YES; Mean Corpuscular HGB CONC 32.9 g/dL (32.0-36.0); Mean Corpuscular Hemoglobin 33.6 pg (27.0-31.0); Monocytes 3 % (0-10); Neutrophil 60 % (42-75); PLT Morphology Comment Appears Decreased; Platelet Count 52 thou/uL (130-400); RBC Distribution Width 19.6 % (11.5-14.5); Red Blood Cell (RBC) Count 2.86 mill/uL (4.70-6.10); White Blood Cell (WBC) Count 4.9 thou/uL (4.8-10.8)
[2018-01-21] MEDS ORDERED: Acetaminophen 500 MG TAB PO PRN (07:57)
[2018-01-21] MEDS ORDERED: Ondansetron PF 4 MG/2 ML Vial IVP PRN (07:57)
[2018-01-21] MEDS ORDERED: Eucerin (Mineral Oil/Petrolatum,White) 30 gm Jar TOP PRN (07:57)
[2018-01-21] MEDS ORDERED: Ondansetron ODT 4 MG TAB PO PRN (07:57)
[2018-01-21] MEDS ORDERED: Artificial Tears 18 DROP/0.9 ML EA EYE PRN (07:57)
[2018-01-21] MEDS ORDERED: Diabetic Tussin 200 MG/10 ML UDCUP PO PRN (07:57)
[2018-01-21] MEDS ORDERED: Sodium Chloride 0.65% Nasal 44 ML BOT EA NARE PRN (07:57)
[2018-01-21] MEDS ORDERED: Loratadine 10 MG TAB PO PRN (07:57)
[2018-01-21] MEDS ORDERED: Bisacodyl 10 MG SUPP PR PRN (07:57)
[2018-01-21] MEDS ORDERED: Phytonadione 10 MG/ML AMP PO SCH (08:00)
[2018-01-21] MEDS: Spironolactone 25 MG TAB PO SCH (08:27)
[2018-01-21] MEDS: Furosemide 40 MG TAB PO SCH (08:27)
[2018-01-21] MEDS: Nadolol 40 MG TAB PO SCH ×2 (08:27→21:24)
[2018-01-21] MEDS: Pantoprazole 40 MG VIAL IVP SCH ×2 (08:28→21:24)
[2018-01-21] MEDS ORDERED: Acetaminophen 325 MG TAB PO PRN (08:42)
[2018-01-21] MEDS: Folic Acid 1 MG TAB PO SCH (09:48)
[2018-01-21] MEDS: Ferrous Sulfate 325 MG TAB PO SCH (09:48)
[2018-01-21] MEDS: Cyanocobalamin (Vitamin B-12) 1,000 MCG TAB PO SCH (09:48)
[2018-01-21] MEDS: Multivitamin W/ Minerals 1 TAB PO SCH (09:48)
--- NOTE | 2018-01-21 10:41 | PDOC.PN ---
- Subjective Encounter Start Date: 01/21/18 Encounter Start Time: 08:30 -: old records requested/rev Patient seen and examined. No new complaints. No overnight events - Objective Resuscitation Status: Resuscitation Status FULL:Full Resuscitation MAR Reviewed: Yes Vital Signs & Weight: Vital Signs (12 hours) Temp Pulse Resp BP BP Pulse Ox 01/21/18 07:54 98.2 F 66 16 155/75 H 100 01/21/18 05:13 137/73 01/21/18 04:00 98.3 F 67 20 137/73 98 01/21/18 00:00 98.2 F 79 20 115/63 115/63 99 Weight Admit Weight 100 lb 3.2 oz Weight 211 lb I&O: 01/20/18 01/21/18 01/22/18 06:59 06:59 06:59 Intake Total 2420 2054 Output Total 400 1000 Balance 2019 1054 Result Diagrams: 01/21/18 03:57 01/21/18 03:57 Additional Labs: Accuchecks 01/21/18 01/20/18 01/20/18 04:52 19:40 16:50 POC Glucose 113 H 229 H 120 H 01/20/18 11:20 POC Glucose 137 H Radiology Reviewed by me: Yes Phys Exam - Physical Examination Constitutional: NAD HEENT: PERRLA, moist MMs, sclera anicteric icterus+ Neck: no JVD, supple Respiratory: no wheezing, no rales, no rhonchi Cardiovascular: RRR, no significant murmur, no rub Gastrointestinal: soft, positive bowel sounds ascites+ Musculoskeletal: pulses present, edema present Neurological: non-focal, normal sensation Psychiatric: normal affect, A&O x 3 Skin: no rash, normal turgor Dx/Plan (1) Coagulopathy Status: Acute Comment: secondary to liver disease and thrombocytopenia. (2) Acute posthemorrhagic anemia Code(s): D62 - ACUTE POSTHEMORRHAGIC ANEMIA Status: Acute (3) Esophageal and gastric varicose veins Code(s): I85.00 - ESOPHAGEAL VARICES WITHOUT BLEEDING; I86.4 - GASTRIC VARICES Status: Acute (4) Hep C w/o coma, chronic Code(s): B18.2 - CHRONIC VIRAL HEPATITIS C Status: Acute (5) Nonadherence to medical treatment Code(s): Z91.19 - PATIENT'S NONCOMPLIANCE W OTH MEDICAL TREATMENT AND REGIMEN Status: Acute (6) Alcohol abuse Code(s): F10.10 - ALCOHOL ABUSE, UNCOMPLICATED Status: Chronic Comment: pt is on ASE protocol (7) Cirrhosis Code(s): K74.60 - UNSPECIFIED CIRRHOSIS OF LIVER Status: Chronic Comment: For EGD to evaluate varices (8) HTN (hypertension) Code(s): I10 - ESSENTIAL (PRIMARY) HYPERTENSION Status: Chronic Comment: start PRN IV hydralazine (9) Thrombocytopenia Code(s): D69.6 - THROMBOCYTOPENIA, UNSPECIFIED Status: Chronic Comment: s/p platelet transfusion - Plan cont current plan of care, continue antibiotics * today paracentesis * repeat labs tomorrow * continue octreotide drip * continue protonix * medication reviewed as below * symptomatic treatment * will monitor today * continue rocephin. Review of Systems - Review of Systems ENT: negative: Ear Pain, Ear Discharge, Nose Pain, Nose Discharge, Nose Congestion, Mouth Pain, Mouth Swelling, Throat Pain, Throat Swelling, Other Respiratory: negative: Cough, Dry, Shortness of Breath, Hemoptysis, SOB with Excertion, Pleuritic Pain, Sputum, Wheezing Cardiovascular: negative: chest pain, palpitations, orthopnea, paroxysmal nocturnal dyspnea, edema, light headedness, other Gastrointestinal: negative: Nausea, Vomiting, Abdominal Pain, Diarrhea, Constipation, Melena, Hematochezia, Other Genitourinary: negative: Dysuria, Frequency, Incontinence, Hematuria, Retention , Other Musculoskeletal: negative: Neck Pain, Shoulder Pain, Arm Pain, Back Pain, Hand Pain, Leg Pain, Foot Pain, Other Skin: negative: Rash, Lesions, Edgar, Bruising, Other - Medications/Allergies Allergies/Adverse Reactions: Allergies Allergy/AdvReac Type Severity Reaction Status Date / Time No Known Drug Allergies Allergy Verified 04/29/15 04:06 Medications: Current Medications Acetaminophen (Tylenol) 325 mg PO Q6H PRN PRN Reason: Mild Pain (1-3) Artificial Tears (Tears Naturale) 2 drop EA EYE PRN PRN PRN Reason: Dry Eyes Bisacodyl (Dulcolax) 10 mg SD DAILYPRN PRN PRN Reason: Constipation Cyanocobalamin (Vitamin B-12) 1,000 mcg PO DAILY [facility] Last Admin: 10/25/18 09:48 Dose: 1,000 mcg Dextrose/Water (Dextrose 50%) 25 gm SLOW IVP PRN PRN PRN Reason: Hypoglycemia Ferrous Sulfate (Feosol) 325 mg PO QAM-[facility] Last Admin: 01/21/18 09:48 Dose: 325 mg Folic Acid (Folvite) 1 mg PO DAILY [facility] Last Admin: 01/21/18 09:48 Dose: 1 mg Furosemide (Lasix) 40 mg PO DAILY [facility] Last Admin: 01/21/18 08:27 Dose: 40 mg Glucagon (Glucagon) 1 mg IM PRN PRN PRN Reason: Hypoglycemia Guaifenesin (Robitussin Sf) 200 mg PO Q4H PRN PRN Reason: Cough Hydralazine HCl (Apresoline) 10 mg SLOW IVP Q6H PRN PRN Reason: SBP Greater Than 170 Dextrose/Water (D5w) 1,000 mls @ 0 mls/hr IV .Q0M PRN PRN Reason: Hypoglycemia Multivitamins 10 ml/ Folic Acid 1 mg/ Thiamine HCl 100 mg / Dextrose/Sodium Chloride 1,011.2 mls @ 75 mls/hr IV 1800 [facility] Last Admin: 01/20/18 18:34 Dose: 1,011.2 mls Octreotide Acetate 1,250 mcg/ (Sodium Chloride) 251.25 mls @ 10.05 mls/hr IVPB INF [facility] Last Admin: 01/20/18 22:06 Dose: 251.25 mls Ceftriaxone Sodium 1 gm/ (Sodium Chloride) 100 mls @ 200 mls/hr IVPB 1830 [facility] Stop: 01/28/18 18:59 Last Admin: 01/20/18 18:34 Dose: 100 mls Insulin Human Lispro (Humalog) 0 units SC .MILD SLIDING SCALE PRN PRN Reason: Mild Correctional Scale Iron/Minerals/Multivitamins (Theragran M) 1 tab PO DAILY [facility] Last Admin: 01/21/18 09:48 Dose: 1 tab Lactulose (Lactulose) 20 gm PO DAILY [facility] Last Admin: 01/21/18 09:48 Dose: 20 gm Loratadine (Claritin) 10 mg PO DAILYPRN PRN PRN Reason: Sinus Symptoms Mineral Oil/White Petrolatum (Eucerin Cream) 0 gm TOP BIDPRN PRN PRN Reason: Dry Skin Nadolol (Corgard) 40 mg PO BID [facility] Last Admin: 01/21/18 08:27 Dose: 40 mg Ondansetron HCl (Zofran Odt) 4 mg PO Q6H PRN PRN Reason: Nausea/Vomiting Ondansetron HCl (Zofran) 4 mg IVP Q6H PRN PRN Reason: Nausea/Vomiting Pantoprazole Sodium (Protonix) 40 mg IVP Q12HR [facility] Last Admin: 01/21/18 08:28 Dose: 40 mg Pantoprazole Sodium (Protonix) 40 mg PO DAILY [facility] Last Admin: 01/21/18 09:49 Dose: Not Given Phytonadione (Aquamephyton) 5 mg PO NOW [facility] Stop: 01/21/18 12:00 Last Admin: 01/21/18 09:48 Dose: 5 mg Senna/Docusate Sodium (Senokot S) 2 tab PO BID PRN PRN Reason: Constipation Sodium Chloride (Flush - Normal Saline) 10 ml IVF Q12HR [facility] Last Admin: 01/21/18 08:27 Dose: 10 ml Sodium Chloride (Flush - Normal Saline) 10 ml IVF PRN PRN PRN Reason: Saline Flush Sodium Chloride (Flush - Normal Saline) 10 ml IVF PRN PRN PRN Reason: Saline Flush Sodium Chloride ([place] Nasal [place] 0.65%) 0 ml EA NARE QIDPRN PRN PRN Reason: Nasal Congestion Spironolactone (Aldactone) 50 mg PO DAILY [facility] Last Admin: 01/21/18 08:27 Dose: 50 mg Thiamine HCl (Thiamine) 100 mg PO DAILY [facility] Last Admin: 01/21/18 09:48 Dose: 100 mg
--- NOTE | 2018-01-21 14:13 | PRG ---
DATE OF SERVICE: 01/21/2018 SUBJECTIVE: The patient has denied any further bleeding. He reports he is having frequent diarrhea. He has had no abdominal pain. OBJECTIVE: VITAL SIGNS: Temperature is 98.2, pulse 63, respiratory rate 16, blood pressure 151/71. CHEST: Clear. CARDIOVASCULAR: Regular rate and rhythm. ABDOMEN: Soft, nontender, without organomegaly or masses. Bowel sounds are present. EXTREMITIES: Normal. LABORATORY DATA: Shows a white blood cell count 4.9, hemoglobin 9.6, hematocrit 29.2, platelet count of 52,000. PT is 24.6 with an INR of 2.2. Chemistries show sodium 132, BUN 7, glucose 124, total b ilirubin 8.0. AST 65, albumin 2.1. ASSESSMENT: 1. Alcoholic cirrhosis. 2. Bleeding gums secondary to coagulopathy and/or thrombocytopenia. 3. Ascites. RECOMMENDATIONS: 1. Can begin to taper octreotide. 2. Advance diet if not done so already. 3. Decrease lactulose. 4. 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
[2018-01-21] MEDS: Multivitamins, Adult 10 ML, Folic Acid 1 MG, Thiamine HCl 100 MG in Dextrose 5 %-0.45 %... IV SCH (18:38)
[2018-01-21] MEDS: cefTRIAXone\\ROCEPHIN 1 GM in Sodium Chloride 0.9% 100 ML IVPB SCH (18:38)
[2018-01-22 04:05] LABS: INR-International Normal Ratio 2.3; Prothrombin Time 25.1 SEC (12.0-14.7)
[2018-01-22 04:14] LABS: ALT (SGPT) 22 U/L (8-55); AST (SGOT) 62 U/L (5-34); Albumin 2.2 g/dL (3.5-5.0); Alkaline Phosphatase 99 U/L (40-150); Anion Gap 9 mmol/L (10-20); BUN (Urea Nitrogen) 7 mg/dL (8.4-25.7); Bilirubin, Total 7.5 mg/dL (0.2-1.2); Calc. Creatinine Clearance 149 mL/min (70-130); Calcium 7.4 mg/dL (7.8-10.44); Carbon Dioxide 28 mmol/L (22-29); Chloride 102 mmol/L (98-107); Estimated GFR-MDRD Greater than 90; Globulin 3.5 g/dL (2.4-3.5); Glucose 132 mg/dL (70-105); Potassium 3.8 mmol/L (3.5-5.1); Protein, Total 5.7 g/dL (6.0-8.3); Sodium 135 mmol/L (136-145)
[2018-01-22 04:44] LABS: #Eosinphils 0.1 thou/uL (0.0-0.7); #Lymphocytes 0.9 thou/uL (1.20-3.40); #Monocytes 0.6 thou/uL (0.11-0.59); #Neutrophils 2.8 thou/uL (1.40-6.50); %Basophils 0.7 % (0.0-1.0); %Eosinophils 2.4 % (0.0-10.0); %Lymphocytes 20.6 % (21.0-51.0); %Neutrophils 62.3 % (42.0-75.0); Mean Corpuscular HGB CONC 32.7 g/dL (32.0-36.0); Mean Corpuscular Hemoglobin 33.4 pg (27.0-31.0); Mean Platelet Volume 6.2 fL (7.4-10.4); PLT Morphology Comment Appears Decreased; Platelet Count 45 thou/uL (130-400); RBC Distribution Width 19.6 % (11.5-14.5); Red Blood Cell (RBC) Count 2.98 mill/uL (4.70-6.10); White Blood Cell (WBC) Count 4.4 thou/uL (4.8-10.8)
[2018-01-22] MEDS: Ferrous Sulfate 325 MG TAB PO SCH (07:55)
[2018-01-22] MEDS: Multivitamin W/ Minerals 1 TAB PO SCH (07:55)
[2018-01-22] MEDS: Folic Acid 1 MG TAB PO SCH (07:55)
[2018-01-22] MEDS: Nadolol 40 MG TAB PO SCH ×2 (07:55→20:52)
[2018-01-22] MEDS: Spironolactone 25 MG TAB PO SCH (07:55)
[2018-01-22] MEDS: Cyanocobalamin (Vitamin B-12) 1,000 MCG TAB PO SCH (07:56)
[2018-01-22] MEDS: Furosemide 40 MG TAB PO SCH (07:56)
[2018-01-22] MEDS: Pantoprazole 40 MG VIAL IVP SCH ×2 (07:57→20:52)
--- NOTE | 2018-01-22 11:30 | PDOC.PN ---
- Subjective Encounter Start Date: 01/22/18 Encounter Start Time: 08:10 Patient seen and examined. No new complaints. No overnight events - Objective Resuscitation Status: Resuscitation Status FULL:Full Resuscitation MAR Reviewed: Yes Vital Signs & Weight: Vital Signs (12 hours) Temp Pulse Resp BP BP Pulse Ox 01/22/18 07:58 98.1 F 62 18 154/71 H 96 01/22/18 03:26 127/61 01/22/18 03:25 98.2 F 66 16 127/61 100 Weight Admit Weight 100 lb 3.2 oz Weight 211 lb I&O: 01/21/18 01/22/18 01/23/18 06:59 06:59 06:59 Intake Total 2055 1750 Output Total 1000 2925 Balance 1055 -1175 Result Diagrams: 01/22/18 03:24 01/22/18 03:24 Additional Labs: Accuchecks 01/22/18 01/21/18 01/21/18 04:05 19:27 17:16 POC Glucose 124 H 169 H 131 H 01/21/18 11:32 POC Glucose 160 H Phys Exam - Physical Examination Constitutional: NAD HEENT: PERRLA, moist MMs icterus+ Neck: no JVD, supple Respiratory: no wheezing, no rales, no rhonchi Cardiovascular: RRR, no significant murmur, no rub Gastrointestinal: soft, non-tender, positive bowel sounds ascites+ Musculoskeletal: no edema, pulses present Neurological: non-focal, normal sensation, moves all 4 limbs Lymphatic: no nodes Psychiatric: normal affect, A&O x 3 Skin: no rash, normal turgor Dx/Plan (1) Coagulopathy Status: Chronic Comment: secondary to liver disease and thrombocytopenia. (2) Hep C w/o coma, chronic Code(s): B18.2 - CHRONIC VIRAL HEPATITIS C Status: Chronic (3) Nonadherence to medical treatment Code(s): Z91.19 - PATIENT'S NONCOMPLIANCE W OTH MEDICAL TREATMENT AND REGIMEN Status: Chronic (4) Alcohol abuse Code(s): F10.10 - ALCOHOL ABUSE, UNCOMPLICATED Status: Chronic Comment: pt is on ASE protocol (5) HTN (hypertension) Code(s): I10 - ESSENTIAL (PRIMARY) HYPERTENSION Status: Chronic Comment: start PRN IV hydralazine (6) Thrombocytopenia Code(s): D69.6 - THROMBOCYTOPENIA, UNSPECIFIED Status: Chronic Comment: s/p platelet transfusion (7) Anemia due to acute blood loss Code(s): D62 - ACUTE POSTHEMORRHAGIC ANEMIA Status: Acute (8) GI bleed Code(s): K92.2 - GASTROINTESTINAL HEMORRHAGE, UNSPECIFIED Status: Acute (9) Hepatic encephalopathy Code(s): K72.90 - HEPATIC FAILURE, UNSPECIFIED WITHOUT COMA Status: Acute (10) Cirrhosis of liver with ascites Code(s): K74.60 - UNSPECIFIED CIRRHOSIS OF LIVER; R18.8 - OTHER ASCITES Status : Chronic (11) Esophageal varices in cirrhosis Code(s): K74.60 - UNSPECIFIED CIRRHOSIS OF LIVER; I85.10 - SECONDARY ESOPHAGEAL VARICES WITHOUT BLEEDING Status: Chronic - Plan cont current plan of care * increase lactulose for high ammonia * today wean off octreotide drip * ambulate as tolerated * medication reviewed as below * symptomatic treatment * repeat labs tomorrow * paracentesis not done due to low platelet and coagulopathy * expecting discharge tomorrow. Review of Systems - Review of Systems ENT: negative: Ear Pain, Ear Discharge, Nose Pain, Nose Discharge, Nose Congestion, Mouth Pain, Mouth Swelling, Throat Pain, Throat Swelling, Other Respiratory: negative: Cough, Dry, Shortness of Breath, Hemoptysis, SOB with Excertion, Pleuritic Pain, Sputum, Wheezing Cardiovascular: negative: chest pain, palpitations, orthopnea, paroxysmal nocturnal dyspnea, edema, light headedness, other Gastrointestinal: negative: Nausea, Vomiting, Abdominal Pain, Diarrhea, Constipation, Melena, Hematochezia, Other Genitourinary: negative: Dysuria, Frequency, Incontinence, Hematuria, Retention , Other Musculoskeletal: negative: Neck Pain, Shoulder Pain, Arm Pain, Back Pain, Hand Pain, Leg Pain, Foot Pain, Other - Medications/Allergies Allergies/Adverse Reactions: Allergies Allergy/AdvReac Type Severity Reaction Status Date / Time No Known Drug Allergies Allergy Verified 04/29/15 04:06 Medications: Current Medications Artificial Tears (Tears Naturale) 2 drop EA EYE PRN PRN PRN Reason: Dry Eyes Bisacodyl (Dulcolax) 10 mg [place] DAILYPRN PRN PRN Reason: Constipation Cyanocobalamin (Vitamin B-12) 1,000 mcg PO DAILY [facility] Last Admin: 01/22/18 07:56 Dose: 1,000 mcg Dextrose/Water (Dextrose 50%) 25 gm SLOW IVP PRN PRN PRN Reason: Hypoglycemia Ferrous Sulfate (Feosol) 325 mg PO QAM-[facility] Last Admin: 01/22/18 07:55 Dose: 325 mg Folic Acid (Folvite) 1 mg PO DAILY [facility] Last Admin: 01/22/18 07:55 Dose: 1 mg Furosemide (Lasix) 40 mg PO DAILY [facility] Last Admin: 01/22/18 07:56 Dose: 40 mg Glucagon (Glucagon) 1 mg IM PRN PRN PRN Reason: Hypoglycemia Guaifenesin (Robitussin Sf) 200 mg PO Q4H PRN PRN Reason: Cough Hydralazine HCl (Apresoline) 10 mg SLOW IVP Q6H PRN PRN Reason: SBP Greater Than 170 Dextrose/Water (D5w) 1,000 mls @ 0 mls/hr IV .Q0M PRN PRN Reason: Hypoglycemia Multivitamins 10 ml/ Folic Acid 1 mg/ Thiamine HCl 100 mg / Dextrose/Sodium Chloride 1,011.2 mls @ 75 mls/hr IV 1800 [facility] Last Admin: 01/21/18 18:38 Dose: 1,011.2 mls Ceftriaxone Sodium 1 gm/ (Sodium Chloride) 100 mls @ 200 mls/hr IVPB 1830 [facility] Stop: 01/28/18 18:59 Last Admin: 01/21/18 18:38 Dose: 100 mls Insulin Human Lispro (Humalog) 0 units SC .MILD SLIDING SCALE PRN PRN Reason: Mild Correctional Scale Iron/Minerals/Multivitamins (Theragran M) 1 tab PO DAILY [facility] Last Admin: 01/22/18 07:55 Dose: 1 tab Lactulose (Lactulose) 20 gm PO TID [facility] Last Admin: 01/22/18 07:54 Dose: 20 gm Loratadine (Claritin) 10 mg PO DAILYPRN PRN PRN Reason: Sinus Symptoms Mineral Oil/White Petrolatum (Eucerin Cream) 0 gm TOP BIDPRN PRN PRN Reason: Dry Skin Nadolol (Corgard) 40 mg PO BID [facility] Last Admin: 01/22/18 07:55 Dose: 40 mg Ondansetron HCl (Zofran Odt) 4 mg PO Q6H PRN PRN Reason: Nausea/Vomiting Ondansetron HCl (Zofran) 4 mg IVP Q6H PRN PRN Reason: Nausea/Vomiting Pantoprazole Sodium (Protonix) 40 mg IVP Q12HR [facility] Last Admin: 01/22/18 07:57 Dose: Not Given Pantoprazole Sodium (Protonix) 40 mg PO DAILY [facility] Last Admin: 01/22/18 07:54 Dose: 40 mg Senna/Docusate Sodium (Senokot S) 2 tab PO BID PRN PRN Reason: Constipation Sodium Chloride (Flush - Normal Saline) 10 ml IVF Q12HR [facility] Last Admin: 01/22/18 07:57 Dose: 10 ml Sodium Chloride (Flush - Normal Saline) 10 ml IVF PRN PRN PRN Reason: Saline Flush Sodium Chloride (Flush - Normal Saline) 10 ml IVF PRN PRN PRN Reason: Saline Flush Sodium Chloride ([place] Nasal [place] 0.65%) 0 ml EA NARE QIDPRN PRN PRN Reason: Nasal Congestion Spironolactone (Aldactone) 50 mg PO DAILY [facility] Last Admin: 01/22/18 07:55 Dose: 50 mg Thiamine HCl (Thiamine) 100 mg PO DAILY [facility] Last Admin: 01/22/18 07:56 Dose: 100 mg
[2018-01-22] MEDS: cefTRIAXone\\ROCEPHIN 1 GM in Sodium Chloride 0.9% 100 ML IVPB SCH (16:37)
--- NOTE | 2018-01-22 17:51 | PRG ---
DATE OF SERVICE: 01/22/2018 SUBJECTIVE: The patient is doing well. He is anxious to go home. He is having no issues with confu ivana. He is having multiple bowel movements secondary to the lactulose. There is no blood in his st ool. OBJECTIVE: VITAL SIGNS: Temperature 98.2, pulse 70, respiratory rate 20, blood pressure 134/61. HEENT: Unremarkable. CHEST: Clear. CARDIOVASCULAR: Regular rate and rhythm. ABDOMEN: Soft, protuberant without rebound or guarding. Bowel sounds are present and normoactive. LABORATORY DATA: Shows a sodium 135, glucose 132, total bilirubin 75, AST 62, albumin 2.2. Ammonia is 92. CBC shows a white blood cell count 4.4, hemoglobin 10, hematocrit 34.4, platelet count 45. P T is 25.1 with an INR of 2.3. ASSESSMENT: 1. Hematemesis -- resolved. 2. Alcoholic cirrhosis. 3. Ascites. 4. Elevated ammonia -- clinically -- the patient does not have hepatic encephalopathy. RECOMMENDATIONS: 1. Decrease dose of lactulose. 2. Stable for discharge from GI standpoint. We will sign off.
[2018-01-22] MEDS: Multivitamins, Adult 10 ML, Folic Acid 1 MG, Thiamine HCl 100 MG in Dextrose 5 %-0.45 %... IV SCH (18:26)
[2018-01-23 08:05] LABS: Anion Gap 8 mmol/L (10-20); BUN (Urea Nitrogen) 6 mg/dL (8.4-25.7); Calc. Creatinine Clearance 172 mL/min (70-130); Calcium 7.7 mg/dL (7.8-10.44); Carbon Dioxide 26 mmol/L (22-29); Chloride 105 mmol/L (98-107); Estimated GFR-MDRD Greater than 90; Glucose 129 mg/dL (70-105); Sodium 135 mmol/L (136-145)
[2018-01-23 08:53] LABS: Band 4 % (5-11); Eosinophils 1 % (0-10); Hemoglobin 10.1 g/dL (14.0-18.0); Lymphocytes 18 % (21-51); MDiff Complete? YES; Mean Corpuscular HGB CONC 32.6 g/dL (32.0-36.0); Mean Corpuscular Hemoglobin 33.5 pg (27.0-31.0); Mean Platelet Volume 11.6 fL (7.4-10.4); Monocytes 5 % (0-10); Neutrophil 72 % (42-75); PLT Morphology Comment Appears Decreased; Platelet Count 40 thou/uL (130-400); Red Blood Cell (RBC) Count 3.01 mill/uL (4.70-6.10)
[2018-01-23] MEDS: Furosemide 40 MG TAB PO SCH (10:14)
[2018-01-23] MEDS: Folic Acid 1 MG TAB PO SCH (10:14)
[2018-01-23] MEDS: Ferrous Sulfate 325 MG TAB PO SCH (10:14)
[2018-01-23] MEDS: Cyanocobalamin (Vitamin B-12) 1,000 MCG TAB PO SCH (10:14)
[2018-01-23] MEDS: Spironolactone 25 MG TAB PO SCH (10:15)
[2018-01-23] MEDS: Pantoprazole 40 MG VIAL IVP SCH (10:16)
[2018-01-23] MEDS: Multivitamin W/ Minerals 1 TAB PO SCH (10:16)
[2018-01-23] MEDS: Nadolol 40 MG TAB PO SCH (10:16)
--- NOTE | 2018-01-23 11:08 | DIS ---
PRIMARY CARE PHYSICIAN: Rocio Rangel DATE OF ADMISSION: 01/19/2018 DATE OF DISCHARGE: 01/23/2018 DISCHARGE DISPOSITION: Home. PRIMARY DISCHARGE DIAGNOSES: 1. Gastrointestinal bleed. 2. Anemia due to acute blood loss. 3. Hepatic encephalopathy. SECONDARY DISCHARGE DIAGNOSES: Coagulopathy, thrombocytopenia, chronic hepatitis C, alcohol abuse, m edication noncompliance, hypertension, esophageal varices, cirrhosis of liver with ascites. PRIMARY PROCEDURES/OPERATIONS: The patient underwent upper endoscopy by Dr. Justin Brennan and the pa alvarado was found to have esophageal varices, banding was performed. RADIOLOGICAL INVESTIGATION: Abdominal ultrasound showed cirrhotic liver, ascites. SIGNIFICANT LABORATORY DATA: WBC 4.0, hemoglobin 10.1, platelets 40. INR 2.3. Sodium 135, potassiu m 4.0, BUN 6, creatinine 0.64, calcium 7.7, and ammonia 64. HIV negative. DISCHARGE MEDICATIONS: Vitamin B12 1000 mcg p.o. daily, Pepcid 20 mg p.o. b.i.d., ferrous sulfate 32 5 mg p.o. daily, folic acid 1 mg p.o. daily, Lasix 40 mg p.o. daily, lactulose 20 g p.o. b.i.d., Corg neal 40 mg p.o. b.i.d., Aldactone 100 mg p.o. daily, thiamine 100 mg p.o. daily. CONTRAINDICATIONS: None. CODE STATUS: FULL CODE. INPATIENT CONSULTANTS: Dr. Justin Brennan was following while in hospital. Dr. Rio Pang was consul nohelia while in hospital. TEST RESULTS PENDING ON DISCHARGE: None. ALLERGIES: No known drug allergy. DISCHARGE PLAN: Post hospital, the patient is instructed to follow up with Dr. Brennan and [facility]. HOSPITAL COURSE: A 57-year-old male with above-mentioned medical problem who was admitted on January 19, 2018, by Dr. Earl. Please see his H and P for further detail. The patient mainly presented wi th bleeding gum as well as he was having melenotic stool. He was admitted to medical floor. GI team was consulted. Programming Equipment Operator did upper endoscopy and the patient was found to have esophageal varices, which was banded. While in hospital, we noted that patient had coagulopathy and that is why he received FFP as well as vitamin K therapy. He also had thrombocytopenia which required 1 unit of platelet transfusion. Patient also has ascites. We tried to do therapeutic paracentesis, but becau se of low platelet count and coagulopathy, it was not possible and that is why we started on Lasix as well as Aldactone therapy. With that, the patient's ascites was improving. We have provided necess chloe patient education about fluid restriction, salt restriction, and medication compliance education given. While in hospital, we noted that his ammonia was going up and that is why we increased the lactulose 3 times daily and after that his lactulose improved and the patient was feeling much better. The pat ient was also given counseling to avoid alcohol product. The patient is medically stable for discharge today. Necessary patient education is given in front o f entire family. REVIEW OF SYSTEMS: Reviewed with him and negative. PHYSICAL EXAMINATION: VITALS: Currently, temperature 98.0, pulse 60, respiratory rate 16, saturation 97% on room air, bloo d pressure 122/63, weight 211 pounds. GENERAL: The patient is currently alert, awake, in no obvious acute distress. HEAD: Normocephalic, atraumatic. EYES: Icterus noted. No nystagmus. NECK: Supple, no JVD, no thyromegaly, no carotid bruit. LUNGS: Clear to auscultation without any rhonchi or rales. CARDIAC: S1, S2 regular without any murmur. ABDOMEN: Soft and benign without any tenderness. EXTREMITIES: No edema. NEUROLOGIC: Nonfocal examination. Total time spent on discharge day, 32 minutes.
--- NOTE | 2018-01-23 12:16 | EKG ---
Test Reason : Blood Pressure : / mmHG Vent. Rate : 099 BPM Atrial Rate : 099 BPM P-R Int : 150 ms QRS Dur : 088 ms QT Int : 390 ms P-R-T Axes : 071 069 075 degrees QTc Int : 500 ms Normal sinus rhythm Prolonged QT Abnormal ECG Confirmed by PARISA PERDOMO ([id number]), material expeditor LARISA OCHOA ([id number]) on 01/23/2018 12:16:19 PM Referred By: Confirmed By:PARISA PERDOMO
[2018-01-23 13:35] VITALS: BP 160/78; TEMP 98.1
== END 2018-01-23 13:12 | disposition home or self-care (01) | DRG 813 ==
LOC: ERS 07:33 → T4-A 11:35
PROVIDERS: ADMIT Internal Medicine; ATTEND Internal Medicine
PROC: 30233K1 Transfusion of Nonautologous Frozen Plasma into Peripheral Vein, Percutaneous Approach (ICD-10-PCS; 2018-01-19)
PROC: 06L38CZ Occlusion of Esophageal Vein with Extraluminal Device, Via Natural or Artificial Opening Endoscopic (ICD-10-PCS; principal; 2018-01-20)
PROC: 30233R1 Transfusion of Nonautologous Platelets into Peripheral Vein, Percutaneous Approach (ICD-10-PCS; 2018-01-20)
DX: D68.9 Coagulation defect, unspecified (principal); I85.00 Esophageal varices without bleeding; D62 Acute posthemorrhagic anemia; K92.2 Gastrointestinal hemorrhage, unspecified; D61.818 Other pancytopenia; I10 Essential (primary) hypertension; E11.9 Type 2 diabetes mellitus without complications; F10.10 Alcohol abuse, uncomplicated; Z91.14 Patient's other noncompliance with medication regimen; D69.6 Thrombocytopenia, unspecified; B18.2 Chronic viral hepatitis C; K70.31 Alcoholic cirrhosis of liver with ascites; Z80.42 Family history of malignant neoplasm of prostate
CPT/HCPCS: 36415; 36416; 36430; 76700; 80048; 80053; 82105; 82140; 82553; 82607; 82728; 82746; 83540; 83550; 84439; 84443; 84484; 85025; 85046; 85610; 85730; 86850; 86900; 86901; 87389; 90471; 90686; 93005; C9113; G0008; J0696; J2250; J2354; J2704; J3411; J3430; J7042; J7050; P9035; P9059

== ENCOUNTER 2018-03-15 10:25 | Day surgery (SDC) | payer OTHER, SELFPAY ==
--- NOTE | 2018-03-15 13:58 | OP ---
DATE OF PROCEDURE: 03/15/2018 PREOPERATIVE DIAGNOSIS: Esophageal varices. DESCRIPTION OF PROCEDURE: After informed consent was obtained, the patient was placed in the left lateral decubitus position. Anesthesia was administered per the Anesthesia Department. Forward-viewing endoscope was inserted into esophagus under direct visualization with ease and passed to the second portion of the duodenum with ease. Second portion of duodenum and duodenal bulb were normal. The pylorus, antrum, body, fundus, and cardia were normal. Retroflexion in stomach was normal. No gastric varices were noted. The esophagus displayed grade 2 esophageal varices. These were treated with esophageal variceal ligation x4. No blood was noted. ASSESSMENT: 1. Grade 2 esophageal varices-status post variceal ligation. 2. Otherwise normal esophagogastroduodenoscopy. RECOMMENDATIONS: 1. No need for repeat esophagogastroduodenoscopy and banding. 2. Repeat EGD in 1 to 2 years. 3. Return to clinic in one month. Job ID: [id number]
== END 2018-03-15 14:08 | disposition home or self-care (01) ==
LOC: SDC 10:25
PROVIDERS: ATTEND Internal Medicine Gastroenterology
PROC: 06L38CZ Occlusion of Esophageal Vein with Extraluminal Device, Via Natural or Artificial Opening Endoscopic (ICD-10-PCS; principal; 2018-03-15)
DX: K74.60 Unspecified cirrhosis of liver (principal); I85.10 Secondary esophageal varices without bleeding; Z79.899 Other long term (current) drug therapy

== ENCOUNTER 2018-04-26 09:15 | Outpatient (CLI) | payer OTHER ==
--- NOTE | 2018-04-26 12:22 | ULT ---
HEPATIC ULTRASOUND: History: Cirrhosis. FINDINGS: Real-time imaging of the liver was performed. This shows a very heterogeneous appearance to the liver with a nodular cirrhotic appearing contour. The liver measures 15.4 cm in size. Within the left lobe is a small septated cyst measuring 1.5 cm in size. Also within the left lobe is an area of slight de creased echogenicity which could just be related to the patient's extensive cirrhosis that is difficu lt to exclude as a small hypoechoic mass and therefore, CT would be required. This measures 1.4 x 1.7 cm. The common duct is normal in caliber at 2-3 mm. The gallbladder wall is slightly thickened and gallst ones are noted. The spleen measures 14.3 cm in length. Doppler evaluation with spectral analysis demonstrates a normal flow pattern seen within the liver. IMPRESSION: 1. Very nodular cirrhotic appearing liver with mild splenomegaly. 2. Within the left lobe of the liver is an approximately 1.4 x 1.7 cm hypoechoic mass. I suspect that this is probably just related to nodular hypoplasia on the basis of the patient's extensive cirrhosi s, but it does appear different than the surrounding liver parenchyma, and therefore, MRI if possible or as another option, CT using liver mass protocol would be recommended for further assessment. 3. Cholelithiasis with a normal caliber common duct. POS: [facility]
== END 2018-04-26 09:16 | disposition home or self-care (01) ==
LOC: BICULT 09:15
PROVIDERS: ATTEND Internal Medicine Gastroenterology
DX: I85.00 Esophageal varices without bleeding (principal); R77.2 Abnormality of alphafetoprotein; R18.8 Other ascites; K74.60 Unspecified cirrhosis of liver; K80.20 Calculus of gallbladder without cholecystitis without obstruction
CPT/HCPCS: 76705

== ENCOUNTER 2018-06-26 20:23 | Inpatient (IN) | payer OTHER, SELFPAY ==
[~2018-06-26 20:23] MED LIST: ISOVUE-370 76%-LOCM 1 ML ONE
--- NOTE | 2018-06-26 21:13 | RAD ---
FEXAM: Chest PA and lateral: HISTORY: Cough COMPARISON: 04/15/2017 FINDINGS: Lung luis are clear. Vascular markings are normal. Heart and mediastinum appear unremarkable. Vascularity is normal. Osseous structures are unremarkable. IMPRESSION: Unremarkable chest
[2018-06-26 22:32] LABS: Hemoglobin 10.2 g/dL (14.0-18.0); Mean Corpuscular HGB CONC 33.8 g/dL (32.0-36.0); Mean Corpuscular Hemoglobin 32.6 pg (27.0-31.0); Mean Corpuscular Volume 96.4 fL (78.0-98.0); Red Blood Cell (RBC) Count 3.12 mill/uL (4.70-6.10); White Blood Cell (WBC) Count 9.5 thou/uL (4.8-10.8)
[2018-06-26 22:43] LABS: ALT (SGPT) 33 U/L (8-55); AST (SGOT) 43 U/L (5-34); Albumin 2.7 g/dL (3.5-5.0); Alkaline Phosphatase 125 U/L (40-150); Anion Gap 9 mmol/L (10-20); BUN (Urea Nitrogen) 17 mg/dL (8.4-25.7); Calc. Creatinine Clearance 0 mL/min (70-130); Calcium 7.9 mg/dL (7.8-10.44); Carbon Dioxide 26 mmol/L (22-29); Chloride 97 mmol/L (98-107); Estimated GFR-MDRD 64; Globulin 3.8 g/dL (2.4-3.5); Glucose 117 mg/dL (70-105); Potassium 5.6 mmol/L (3.5-5.1); Protein, Total 6.5 g/dL (6.0-8.3); Sodium 126 mmol/L (136-145)
[2018-06-26 22:50] LABS: #Eosinphils 0.1 thou/uL (0.0-0.7); #Lymphocytes 0.9 thou/uL (1.20-3.40); #Monocytes 1.1 thou/uL (0.11-0.59); #Neutrophils 7.3 thou/uL (1.40-6.50); %Basophils 0.5 % (0.0-1.0); %Eosinophils 1.4 % (0.0-10.0); %Lymphocytes 9.4 % (21.0-51.0); %Neutrophils 76.7 % (42.0-75.0); Anisocytosis SLIGHT = 6-15 cells (100X) (0-5/hpf); MDiff Complete? YES; Mean Platelet Volume 8.1 fL (7.4-10.4); Platelet Count 62 thou/uL (130-400); Platelet Morphology Comment Appears Decreased; Schistocytes SLIGHT = 2-5 cells (100X) (0-1/hpf)
[2018-06-26 23:43] LABS: INR-International Normal Ratio 1.6; PTT 38.8 SEC (22.9-36.1)
[2018-06-27] MEDS ORDERED: Ibuprofen 200 MG TAB ONE (01:33)
[2018-06-27] MEDS ORDERED: cefTRIAXone\\ROCEPHIN 2 GM VIAL ONE (03:57)
[2018-06-27] MEDS ORDERED: Calcium Chloride 1 GM/10 ML Abboject SYRINGE ONE (03:57)
[2018-06-27 04:00] LABS: Bilirubin Negative (Negative); Blood, Urine Trace (Negative); Clarity CLEAR (Clear); Glucose, Urine (Dipstick) Negative (Negative); Leukocyte Negative (Negative); Nitrite Negative (Negative); Protein, Urine (Dipstick) Negative (Neg-Trace); Specific Gravity, Urine 1.019 (1.002-1.036); pH, Urine 7.5 (5.0-9.0)
[2018-06-27 04:03] LABS: Bacteria/HPF None Seen HPF (None Seen); Hyaline Casts/LPF 0-3 HYALINE CAST LPF (0-3 Hyaline); RBC/HPF 0-3 HPF (0-3); Squamous Epithelial None Seen HPF (0-3); WBC/HPF None Seen HPF (0-3)
[2018-06-27] MEDS ORDERED: Azithromycin 500 MG in Sodium Chloride 0.9% 250 ML 250 ML IVPB SCH (05:30)
[2018-06-27] MEDS ORDERED: Ondansetron PF 4 MG/2 ML Vial IVP PRN (06:57)
[2018-06-27] MEDS ORDERED: Ondansetron ODT 4 MG TAB SL PRN (06:57)
[2018-06-27] MEDS ORDERED: Metoclopramide HCl 10 MG/2 ML VIAL IVP PRN (08:14)
[2018-06-27] MEDS ORDERED: Senokot S 8.6-50 MG TAB PO PRN (08:14)
[2018-06-27] MEDS ORDERED: Cepastat Lozenges 1 LOZ PO PRN (08:14)
[2018-06-27] MEDS ORDERED: Bisacodyl 10 MG SUPP PR PRN (08:14)
[2018-06-27] MEDS ORDERED: hydrALAZINE 20 MG/ML VIAL SLOW IVP PRN (08:14)
[2018-06-27] MEDS ORDERED: Loperamide HCl 2 MG CAP PO PRN (08:14)
[2018-06-27] MEDS ORDERED: HYDROcodone/Acetaminophen 5/325 mg Tablet PO PRN (08:14)
[2018-06-27] MEDS ORDERED: Acetaminophen 325 MG TAB PO PRN (08:14)
[2018-06-27] MEDS ORDERED: Loratadine 10 MG TAB PO PRN (08:14)
[2018-06-27] MEDS ORDERED: Artificial Tears 18 DROP/0.9 ML EA EYE PRN (08:14)
[2018-06-27] MEDS ORDERED: Sodium Chloride 0.65% Nasal 44 ML BOT EA NARE PRN (08:14)
[2018-06-27] MEDS ORDERED: Eucerin (Mineral Oil/Petrolatum,White) 30 gm Jar TOP PRN (08:14)
[2018-06-27] MEDS ORDERED: Calcium Carbonate 500 MG ChewTAB PO PRN (08:14)
--- NOTE | 2018-06-27 08:39 | CT ---
PRELIMINARY REPORT/[facility]/EMERGENCY AFTER HOURS PROCEDURE: EXAM: CT Angiography Chest With Contrast EXAM DATE/TIME: 06/27/2018 12:50 AM CLINICAL HISTORY: 58 years old, male; Signs and symptoms; Dyspnea; Patient HX: 58 y/o m, with h/o hepatic CA, presents to ed C/O 2 weeks of cough, with worsening of cough when lying flat, some dyspnea on lying flat. He d enies chest tightness, chest discomfort. Associated with decr po, recent has. No recent fever, chills, abd pain, urinary symptoms, bld in stool, n/v/d. Family reports PT is not currently un dergoing CA treatment as PT was told CA is advanced such that nothing can be done TECHNIQUE: Imaging protocol: Axial computed tomographic angiography images of the chest with intravenous contras t using CT angiography protocol. 3D rendering: MIP reconstructed images were created and reviewed. COMPARISON: No relevant prior studies available. FINDINGS: Pulmonary arteries: No pulmonary emboli. Aorta: Atherosclerotic disease of the thoracic aorta without aneurysm or dissection. Lungs: Several clusters of tree in bud nodules and small consolidations within the right upper lobe, right middle lobe, and left upper and lower lobe, likely multifocal bronchopneumonia. Pleural space: Normal. No pneumothorax. No pleural effusion. Heart: Normal. No cardiomegaly. No pericardial effusion. Liver: Nodular peripheral contour, compatible with cirrhosis. Low attenuation foci within the liver, likely simple cysts, the largest measuring 12 mm in diameter. Small amount of ascites within the visualized upper abdomen, secondary to cirrhosis. Gallbladder and bile ducts: Cholelithiasis, with no CT evidence of acute cholecystitis. Spleen: Splenomegaly. Adrenals: 2.4 cm left adrenal myelolipoma. Lymph nodes: Unremarkable. No enlarged lymph nodes. Bones/joints: Old, healed left posterior rib fractures. Soft tissues: Unremarkable. IMPRESSION: 1. No pulmonary emboli. 2. Several clusters of tree in bud nodules and small consolidations within the right upper lobe, righ t middle lobe, and left upper and lower lobe, likely multifocal bronchopneumonia. Recommend followup. Thank you for allowing us to participate in the care of your patient. Dictated and Authenticated by: Torrey Hubbard MD 06/27/2018 1:51 AM Central Time ([place] & [place]) FINAL REPORT EMERGENCY AFTER HOURS CT ANGIO CHEST PERFORMED WITH IV CONTRAST ENHANCEMENT WITH 3D RECONSTRUCTIONS: Date: 06/26/18 HISTORY: Elevated D-Dimer, cough, shortness of breath. COMPARISON: 03/24/16 study. FINDINGS: The lungs show some infiltrative changes within the right upper lobe. Some minimal parenchymal change is seen in the left upper lobe. Also, some minimal areas of slightly tree-in-bud nodularity in both lower lobes. No pleural effusions. No pulmonary nodules. Thoracic aorta is normal in caliber. The pulmonary artery opacification is suboptimal. Proximal emboli are not seen, but peripheral emboli cannot be excluded. Liver has a very nodular cirrhotic appearance. There is an indeterminate hypodense lesion within the left lobe of the liver. It does have CT Hounsfield unit numbers that are suggestive of a cyst, measur ing 9. It is larger than on the previous 2016 study. The spleen is enlarged. A myelolipoma of the lef t adrenal gland is again demonstrated. A gallstone is seen. A second hypodensity in the more inferior portion of the right lobe of the liver also has CT numbers that are most suggestive of a cyst. IMPRESSION: 1. Limited examination for evaluation for embolus, but no central embolus seen. 2. Patchy pneumonic infiltrates. 3. Nodular cirrhotic liver with splenomegaly. 4. Gallstones. 5. Left adrenal myelolipoma measuring 2.9 cm. This report is in agreement with the preliminary report issued by [facility]. POS: ABBY
[2018-06-27] MEDS ORDERED: Cefepime 2 GM in Sodium Chloride 0.9% 100 ML IVPB SCH (09:00)
[2018-06-27] MEDS ORDERED: Thiamine 100 MG TAB PO SCH (09:30)
[2018-06-27] MEDS ORDERED: Folic Acid 1 MG TAB PO SCH (09:30)
[2018-06-27] MEDS ORDERED: Ferrous Sulfate 325 MG TAB PO SCH (09:30)
[2018-06-27] MEDS ORDERED: Spironolactone 100 MG TAB PO SCH (09:30)
[2018-06-27] MEDS ORDERED: Nadolol 40 MG TAB PO SCH (09:30)
[2018-06-27] MEDS ORDERED: Saccharomyces boulardii 250 MG CAP PO SCH (09:30)
[2018-06-27] MEDS ORDERED: Furosemide 40 MG TAB PO SCH (09:30)
[2018-06-27] MEDS: Cyanocobalamin (Vitamin B-12) 1,000 MCG TAB PO SCH (09:32)
[2018-06-27] MEDS: Folic Acid 1 MG TAB PO SCH (09:32)
--- NOTE | 2018-06-27 11:01 | HP ---
PRIMARY CARE PHYSICIAN: [facility]. REASON FOR ADMISSION: Pulmonary infection. HISTORY OF PRESENT ILLNESS: A 58-year-old male who has underlying history of hepatitis C and cirrhosis of liver as well as liver cancer, who presented to emergency room with complaint of cough, increasing amount with sputum. He was also having increasing shortness of breath. He was feeling weak and tired. He denies any associated flu-like illness. He denies any body ache, myalgia, or sore throat. He denies any sick exposure. He denies any recent travel. He denies any diarrhea, constipation, melena, or hematochezia. He denies any UTI symptoms. In the emergency room, this patient had a chest x-ray which was unremarkable, but CT angiography showed several clusters of tree-in-bud nodule and small consolidation within the right upper lobe and middle lobe and left upper lobe and lower lobe, and in this way, the patient was having multifocal bronchopneumonia. In the emergency room, the patient was given Rocephin and azithromycin. The patient was also having hyperkalemia and that is why, he was given Kayexalate, calcium chloride, ibuprofen, and IV fluid in the emergency room. This patient has underlying cirrhosis, and he is taking Aldactone and Lasix that might have contributed to his hyperkalemia. The patient denies any asterixis. He denies any abdominal pain or abdominal distention. REVIEW OF SYSTEMS: CONSTITUTIONAL: Negative for weight loss or gain, ability to conduct usual activities. SKIN: Negative for rash, itching. EYES: Negative for double vision, pain. ENT/MOUTH: Negative for nose bleeding, neck stiffness, pain, tenderness. CARDIOVASCULAR: Negative for palpitations, dyspnea on exertion, orthopnea. RESPIRATORY: Negative for shortness of breath, wheezing, cough, hemoptysis, fever or night sweats. GASTROINTESTINAL: Negative for poor appetite, abdominal pain, heartburn, nausea, vomiting, constipation, or diarrhea. GENITOURINARY: Negative for urgency, frequency, dysuria, nocturia. MUSCULOSKELETAL: Negative for pain, swelling. NEUROLOGIC/PSYCHIATRIC: Negative for anxiety, depression. ALLERGY/IMMUNOLOGIC: Negative for skin rash, bleeding tendency. Please see my HPI for pertinent positives and negatives. All other review of systems reviewed and negative except as mentioned in HPI. PAST MEDICAL HISTORY: Chronic hepatitis C, treated; hepatocellular carcinoma; cirrhosis of liver with portal hypertension; and diabetes, type 2. PAST SURGICAL HISTORY: Banding of esophageal varices. PAST PSYCHIATRIC HISTORY: Reviewed and negative. SOCIAL HISTORY: The patient is ex-alcoholic. He denies any current alcohol abuse. He denies any tobacco or other illicit drug abuse. FAMILY HISTORY: No family history of coronary artery disease, but prostate cancer positive to his father and undiagnosed cancer to his mother. ALLERGIES: NO KNOWN DRUG ALLERGIES. CURRENT HOME MEDICATIONS: The patient was discharged to home on following medications; 1. Vitamin B12, 1000 mcg p.o. daily. 2. Ferrous sulfate 325 mg daily. 3. Folic acid 1 mg daily. 4. Lasix 40 mg p.o. daily. 5. Corgard 40 mg b.i.d. 6. Aldactone 100 mg p.o. daily. 7. Thiamine 100 mg p.o. daily. EMERGENCY ROOM COURSE: The patient was given Rocephin, azithromycin, Kayexalate, calcium chloride, ibuprofen, and IV fluid. PHYSICAL EXAMINATION: VITAL SIGNS: On arrival, blood pressure 129/58, pulse 104, respiratory rate 18, temperature 100.5, and saturation is 97% on room air. Weight 88.4 kg. GENERAL: The patient is currently alert, awake, no obvious acute distress. HEENT: Head; normocephalic, atraumatic. Eyes; pupils round, reactive to light. Extraocular muscle intact. ENT, oropharynx within normal limits. Moist mucous membranes. No oral lesion. No pharyngeal erythema. No exudate. NECK: Supple. No JVD. No thyromegaly. No carotid bruit. LUNGS: Scattered rales noted. No wheeze. No rhonchi. No accessory muscles of respiration in use. CARDIAC: S1, S2 regular. No murmur. No gallop. No rub. ABDOMEN: Slightly distended and nontender. No peritoneal sign. No guarding. No rigidity. No rebound. BACK: Unremarkable. No CVA tenderness. UPPER EXTREMITIES: Passive movements of all joints are normal. LOWER EXTREMITIES: Trace edema noted. Good distal pulsation. SKIN: Jaundiced. HEMATOLOGICAL SYSTEM: No lymphadenopathy. PSYCHIATRIC: Normal affect. NEUROLOGIC: Nonfocal examination. No asterixis. SIGNIFICANT LABORATORY DATA: EKG showing sinus rhythm with mildly elevated prolonged QT interval. CT chest angiography, no evidence of PE, but several clusters of tree-in-bud nodule and small consolidation in multifocal lobes. CBC; WBC 9.5, hemoglobin 10.2, and platelets 62. INR 1.6. D-dimer 4.89. BMP; sodium 126, potassium 5.6, chloride 97, carbon dioxide 26, BUN 17, creatinine 1.17, glucose 117, and calcium 7.9. LFT; bilirubin 5.0, AST 43, ALT 33, alkaline phosphatase 125, albumin 2.7, lipase 33. Troponin 0.015. Urinalysis unremarkable. ASSESSMENT AND PLAN: 1. Multifocal bronchopneumonia, community-acquired, likely streptococcal infection. The patient has underlying immunocompromised status with liver cirrhosis. The patient will be given dual-antibiotic therapy with Rocephin and levofloxacin, and DuoNeb therapy will be given, Mucinex 600 mg twice daily. His respiratory virus panel; influenza A and B negative. The patient has tree-in-bud appearance on the CT angiography. The patient will need broad-spectrum antibiotic therapy, and he will follow up with primary care physician after discharge. 2. Liver cirrhosis with a history of hepatocellular carcinoma. Currently, problem is stable. The patient is to follow up with flat clothier after discharge. 3. Macrocytic anemia. We will continue folic acid, vitamin B12, and thiamine therapy. 4. Thrombocytopenia. We will monitor platelet count. We will avoid heparin product for DVT prophylaxis. Coagulopathy due to liver disease, jaundice due to end-stage liver disease. 5. Hyponatremia and hyperkalemia, likely due to diuretic therapy and that is why we will hold on his Aldactone and Lasix today. We will repeat labs tomorrow. 6. Obesity with BMI of 33. Dietary education given. Weight loss education given. 7. Deep venous thrombosis prophylaxis, SCD boots. 8. GI prophylaxis, Protonix 40 mg p.o. daily. CODE STATUS: Full code. DISPOSITION PLAN: Based on clinical course, we are expecting the patient's stay in hospital more than 2 midnights. Plan of care discussed with the patient in detail. Job ID: [id number]
[2018-06-27] MEDS: guaiFENesin ER 600 MG TAB PO SCH (20:38)
[2018-06-27] MEDS: Zolpidem Tartrate 5 MG TAB PO PRN (20:40)
[2018-06-27] MEDS: Nadolol 40 MG TAB PO SCH (20:40)
[2018-06-28 04:00] LABS: ALT (SGPT) 24 U/L (8-55); AST (SGOT) 37 U/L (5-34); Albumin 2.4 g/dL (3.5-5.0); Alkaline Phosphatase 106 U/L (40-150); Anion Gap 9 mmol/L (10-20); BUN (Urea Nitrogen) 14 mg/dL (8.4-25.7); Bilirubin, Total 3.5 mg/dL (0.2-1.2); Calc. Creatinine Clearance 118 mL/min (70-130); Calcium 7.9 mg/dL (7.8-10.44); Carbon Dioxide 23 mmol/L (22-29); Chloride 99 mmol/L (98-107); Estimated GFR-MDRD 90; Globulin 3.3 g/dL (2.4-3.5); Glucose 170 mg/dL (70-105); Potassium 4.8 mmol/L (3.5-5.1); Protein, Total 5.7 g/dL (6.0-8.3); Sodium 126 mmol/L (136-145)
[2018-06-28 04:56] LABS: #Eosinphils 0.1 thou/uL (0.0-0.7); #Monocytes 1.1 thou/uL (0.11-0.59); #Neutrophils 5.7 thou/uL (1.40-6.50); %Basophils 0.2 % (0.0-1.0); %Eosinophils 1.7 % (0.0-10.0); %Lymphocytes 12.3 % (21.0-51.0); %Monocytes 14.1 % (0.0-10.0); %Neutrophils 71.8 % (42.0-75.0); Hemoglobin 8.8 g/dL (14.0-18.0); Mean Corpuscular HGB CONC 33.7 g/dL (32.0-36.0); Mean Corpuscular Hemoglobin 32.8 pg (27.0-31.0); Mean Corpuscular Volume 97.3 fL (78.0-98.0); Mean Platelet Volume 6.7 fL (7.4-10.4); Platelet Count 55 thou/uL (130-400); Platelet Morphology Comment Appears Decreased; RBC Distribution Width 19.7 % (11.5-14.5)
[2018-06-28] MEDS: cefTRIAXone\\ROCEPHIN 1 GM in Sodium Chloride 0.9% 100 ML IVPB SCH (05:05)
[2018-06-28] MEDS: guaiFENesin ER 600 MG TAB PO SCH ×2 (08:47→20:11)
[2018-06-28] MEDS: Ferrous Sulfate 325 MG TAB PO SCH (08:47)
[2018-06-28] MEDS: Saccharomyces boulardii 250 MG CAP PO SCH (08:47)
[2018-06-28] MEDS: Thiamine 100 MG TAB PO SCH (08:48)
[2018-06-28] MEDS: Cyanocobalamin (Vitamin B-12) 1,000 MCG TAB PO SCH (08:48)
[2018-06-28] MEDS: Nadolol 40 MG TAB PO SCH ×2 (08:48→20:11)
[2018-06-28] MEDS: Folic Acid 1 MG TAB PO SCH (08:49)
[2018-06-28] MEDS ORDERED: Spironolactone 100 MG TAB PO SCH (09:00)
[2018-06-28] MEDS ORDERED: Furosemide 40 MG TAB PO SCH (09:00)
--- NOTE | 2018-06-28 11:11 | PDOC.PN ---
- Subjective Encounter Start Date: 06/28/18 Encounter Start Time: 09:20 Patient seen and examined. No new complaints. No overnight events - Objective Resuscitation Status - Order Detail: 06/27/18 08:11 Resuscitation Status Routine Resuscitation Status: FULL: Full Resuscitation MAR Reviewed: Yes Vital Signs & Weight: Vital Signs (12 hours) Temp Pulse Resp BP Pulse Ox 06/28/18 08:32 97.9 F 83 16 144/73 H 98 06/28/18 04:54 98.4 F 87 18 135/74 96 06/28/18 00:46 99.6 F 95 18 138/71 97 Weight Weight 199 lb 9 oz I&O: 06/27/18 06/28/18 06/29/18 06:59 06:59 06:59 Intake Total 2620 Output Total 500 Balance 2120 Result Diagrams: 06/28/18 03:31 06/28/18 03:31 Phys Exam - Physical Examination Constitutional: NAD HEENT: PERRLA, moist MMs Neck: no JVD, supple Respiratory: no wheezing, no rales, no rhonchi Cardiovascular: RRR, no significant murmur, no rub Gastrointestinal: soft, non-tender, no distention, positive bowel sounds Musculoskeletal: no edema, pulses present Neurological: non-focal, normal sensation, moves all 4 limbs Lymphatic: no nodes Psychiatric: normal affect Skin: no rash, normal turgor Dx/Plan (1) Hyperkalemia Code(s): E87.5 - HYPERKALEMIA Status: Acute (2) Hyponatremia Code(s): E87.1 - HYPO-OSMOLALITY AND HYPONATREMIA Status: Acute (3) Multifocal pneumonia Code(s): J18.9 - PNEUMONIA, UNSPECIFIED ORGANISM Status: Acute (4) Anemia, normocytic normochromic Code(s): D64.9 - ANEMIA, UNSPECIFIED Status: Chronic (5) Cirrhosis of liver with ascites Code(s): K74.60 - UNSPECIFIED CIRRHOSIS OF LIVER; R18.8 - OTHER ASCITES Status : Chronic (6) Coagulopathy Status: Chronic Comment: secondary to liver disease and thrombocytopenia. (7) Esophageal varices in cirrhosis Code(s): K74.60 - UNSPECIFIED CIRRHOSIS OF LIVER; I85.10 - SECONDARY ESOPHAGEAL VARICES WITHOUT BLEEDING Status: Chronic (8) HTN (hypertension) Code(s): I10 - ESSENTIAL (PRIMARY) HYPERTENSION Status: Chronic Comment: start PRN IV hydralazine (9) Hep C w/o coma, chronic Code(s): B18.2 - CHRONIC VIRAL HEPATITIS C Status: Chronic (10) Nonadherence to medical treatment Code(s): Z91.19 - PATIENT'S NONCOMPLIANCE W OTH MEDICAL TREATMENT AND REGIMEN Status: Chronic (11) Obesity (BMI 30.0-34.9) Code(s): E66.9 - OBESITY, UNSPECIFIED Status: Chronic (12) Thrombocytopenia Code(s): D69.6 - THROMBOCYTOPENIA, UNSPECIFIED Status: Chronic Comment: s/p platelet transfusion - Plan cont current plan of care, continue antibiotics * medication reviewed as below * symptomatic treatment * continue rocephin and levaquin. Review of Systems - Review of Systems ENT: negative: Ear Pain, Ear Discharge, Nose Pain, Nose Discharge, Nose Congestion, Mouth Pain, Mouth Swelling, Throat Pain, Throat Swelling, Other Respiratory: Cough. negative: Dry, Shortness of Breath, Hemoptysis, SOB with Excertion, Pleuritic Pain, Sputum, Wheezing Cardiovascular: negative: chest pain, palpitations, orthopnea, paroxysmal nocturnal dyspnea, edema, light headedness, other Gastrointestinal: negative: Nausea, Vomiting, Abdominal Pain, Diarrhea, Constipation, Melena, Hematochezia, Other Genitourinary: negative: Dysuria, Frequency, Incontinence, Hematuria, Retention , Other Musculoskeletal: negative: Neck Pain, Shoulder Pain, Arm Pain, Back Pain, Hand Pain, Leg Pain, Foot Pain, Other Skin: negative: Rash, Lesions, Edgar, Bruising, Other - Medications/Allergies Allergies/Adverse Reactions: Allergies Allergy/AdvReac Type Severity Reaction Status Date / Time No Known Drug Allergies Allergy Verified 03/12/18 14:48 Medications: Current Medications Acetaminophen (Tylenol) 650 mg PO Q4H PRN PRN Reason: Headache/Fever/Mild Pain (1-3) Hydrocodone Bitart/Acetaminophen ([place] 5/325) 1 tab PO Q4H PRN PRN Reason: Moderate Pain (4-6) Albuterol/Ipratropium (Duoneb) 3 ml NEB [id number] PRN PRN Reason: SOB &/or Wheezing Artificial Tears (Tears Naturale) 2 drop EA EYE PRN PRN PRN Reason: Dry Eyes Bisacodyl (Dulcolax) 10 mg MO DAILYPRN PRN PRN Reason: Constipation Calcium Carbonate (Tums) 1,000 mg PO Q4H PRN PRN Reason: Heartburn or Indigestion Cyanocobalamin (Vitamin B-12) 1,000 mcg PO DAILY [facility] Last Admin: 06/28/18 08:48 Dose: 1,000 mcg Ferrous Sulfate (Feosol) 325 mg PO QAM-WM [facility] Last Admin: 06/28/18 08:47 Dose: 325 mg Folic Acid (Folvite) 1 mg PO DAILY [facility] Last Admin: 06/28/18 08:49 Dose: 1 mg Guaifenesin (Robitussin Sf) 200 mg PO Q4H PRN PRN Reason: Cough Guaifenesin (Mucinex) 600 mg PO Q12HR [facility] Last Admin: 06/28/18 08:47 Dose: 600 mg Hydralazine HCl (Apresoline) 10 mg SLOW IVP Q4H PRN PRN Reason: SBP > 180 and HR < 70 Levofloxacin 750 mg/ Device 150 mls @ 100 mls/hr IVPB Q24HR [facility] Last Admin: 06/28/18 08:50 Dose: 150 mls Ceftriaxone Sodium 1 gm/ (Sodium Chloride) 100 mls @ 200 mls/hr IVPB Q24HR [facility] Last Admin: 06/28/18 05:05 Dose: 100 mls Lactulose (Lactulose) 20 gm PO BID [facility] Last Admin: 06/28/18 08:47 Dose: 20 gm Loperamide HCl (Imodium) 2 mg PO PRN PRN PRN Reason: Diarrhea/Loose Stools Loratadine (Claritin) 10 mg PO DAILYPRN PRN PRN Reason: Sinus Symptoms Metoclopramide HCl (Reglan) 5 mg IVP Q4H PRN PRN Reason: Nausea Mineral Oil/White Petrolatum (Eucerin Cream) 0 gm TOP BIDPRN PRN PRN Reason: Dry Skin Nadolol (Corgard) 40 mg PO BID [facility] Last Admin: 06/28/18 08:48 Dose: 40 mg Pantoprazole Sodium (Protonix) 40 mg PO DAILY [facility] Last Admin: 06/28/18 08:47 Dose: 40 mg Saccharomyces Boulardii (Florastor) 250 mg PO DAILY [facility] Last Admin: 06/28/18 08:47 Dose: 250 mg Senna/Docusate Sodium (Senokot S) 2 tab PO BIDPRN PRN PRN Reason: Constipation Sodium Chloride ([place] Nasal [place] 0.65%) 0 ml EA NARE QIDPRN PRN PRN Reason: Nasal Congestion Thiamine HCl (Thiamine) 100 mg PO DAILY JENNY Last Admin: 06/28/18 08:48 Dose: 100 mg Throat Lozenges (Cepastat Lozenges) 1 grabiel PO Q2H PRN PRN Reason: Sore Throat Zolpidem Tartrate (Ambien) 5 mg PO HSPRN PRN PRN Reason: Insomnia Last Admin: 06/27/18 20:40 Dose: 5 mg
[2018-06-28 14:38] VITALS: BMI 32.0
[2018-06-28] MEDS: Diabetic Tussin 200 MG/10 ML UDCUP PO PRN ×2 (15:22→21:43)
[2018-06-28] MEDS: Zolpidem Tartrate 5 MG TAB PO PRN (20:11)
[2018-06-29] MEDS: cefTRIAXone\\ROCEPHIN 1 GM in Sodium Chloride 0.9% 100 ML IVPB SCH (03:26)
[2018-06-29] MEDS: Saccharomyces boulardii 250 MG CAP PO SCH (08:46)
[2018-06-29] MEDS: Thiamine 100 MG TAB PO SCH (08:46)
[2018-06-29] MEDS: Folic Acid 1 MG TAB PO SCH (08:46)
[2018-06-29] MEDS: Ferrous Sulfate 325 MG TAB PO SCH (08:46)
[2018-06-29] MEDS: Nadolol 40 MG TAB PO SCH ×2 (08:46→20:15)
[2018-06-29] MEDS: guaiFENesin ER 600 MG TAB PO SCH ×2 (08:47→20:15)
[2018-06-29] MEDS: Cyanocobalamin (Vitamin B-12) 1,000 MCG TAB PO SCH (08:47)
[2018-06-29 08:48] LABS: #Eosinphils 0.2 thou/uL (0.0-0.7); #Lymphocytes 0.9 thou/uL (1.20-3.40); #Neutrophils 4.5 thou/uL (1.40-6.50); %Basophils 0.2 % (0.0-1.0); %Eosinophils 3.1 % (0.0-10.0); %Lymphocytes 14.1 % (21.0-51.0); %Monocytes 14.5 % (0.0-10.0); %Neutrophils 68.2 % (42.0-75.0); Hemoglobin 10.3 g/dL (14.0-18.0); Mean Corpuscular HGB CONC 33.7 g/dL (32.0-36.0); Mean Corpuscular Hemoglobin 32.5 pg (27.0-31.0); Mean Corpuscular Volume 96.3 fL (78.0-98.0); Mean Platelet Volume 6.5 fL (7.4-10.4); Platelet Count 64 thou/uL (130-400); RBC Distribution Width 19.3 % (11.5-14.5); Red Blood Cell (RBC) Count 3.17 mill/uL (4.70-6.10); White Blood Cell (WBC) Count 6.6 thou/uL (4.8-10.8)
[2018-06-29 09:08] LABS: ALT (SGPT) 26 U/L (8-55); AST (SGOT) 38 U/L (5-34); Albumin 2.6 g/dL (3.5-5.0); Alkaline Phosphatase 115 U/L (40-150); Anion Gap 10 mmol/L (10-20); BUN (Urea Nitrogen) 10 mg/dL (8.4-25.7); Bilirubin, Total 3.2 mg/dL (0.2-1.2); Calc. Creatinine Clearance 132 mL/min (70-130); Calcium 8.3 mg/dL (7.8-10.44); Carbon Dioxide 22 mmol/L (22-29); Chloride 100 mmol/L (98-107); Estimated GFR-MDRD Greater than 90; Globulin 3.7 g/dL (2.4-3.5); Glucose 154 mg/dL (70-105); Potassium 4.6 mmol/L (3.5-5.1); Protein, Total 6.3 g/dL (6.0-8.3); Sodium 127 mmol/L (136-145)
--- NOTE | 2018-06-29 12:40 | PDOC.PN ---
- Subjective Encounter Start Date: 06/29/18 Encounter Start Time: 09:40 Patient seen and examined. No new complaints. No overnight events - Objective Resuscitation Status - Order Detail: 06/27/18 08:11 Resuscitation Status Routine Resuscitation Status: FULL: Full Resuscitation MAR Reviewed: Yes Vital Signs & Weight: Vital Signs (12 hours) Temp Pulse Resp BP Pulse Ox 06/29/18 08:00 97 06/29/18 03:34 98.2 F 78 18 129/69 97 Weight Admit Weight 199 lb 9 oz Weight 192 lb 4.8 oz I&O: 06/28/18 06/29/18 06/30/18 06:59 06:59 06:59 Intake Total 2620 1120 Output Total 500 Balance 2120 1120 Result Diagrams: 06/29/18 08:38 06/29/18 08:37 Additional Labs: Accuchecks 06/29/18 06/29/18 06/28/18 11:41 04:46 20:08 POC Glucose 118 H 113 H 179 H 06/28/18 16:29 POC Glucose 150 H Phys Exam - Physical Examination Constitutional: NAD HEENT: PERRLA, moist MMs, sclera anicteric Neck: no JVD, supple Respiratory: no wheezing, no rales, no rhonchi Cardiovascular: RRR, no significant murmur, no rub Gastrointestinal: soft, non-tender, no distention, positive bowel sounds Musculoskeletal: no edema, pulses present Neurological: non-focal, normal sensation Lymphatic: no nodes Psychiatric: normal affect Skin: no rash, normal turgor Dx/Plan (1) Hyperkalemia Code(s): E87.5 - HYPERKALEMIA Status: Acute (2) Hyponatremia Code(s): E87.1 - HYPO-OSMOLALITY AND HYPONATREMIA Status: Acute (3) Multifocal pneumonia Code(s): J18.9 - PNEUMONIA, UNSPECIFIED ORGANISM Status: Acute (4) Anemia, normocytic normochromic Code(s): D64.9 - ANEMIA, UNSPECIFIED Status: Chronic (5) Cirrhosis of liver with ascites Code(s): K74.60 - UNSPECIFIED CIRRHOSIS OF LIVER; R18.8 - OTHER ASCITES Status : Chronic (6) Coagulopathy Status: Chronic Comment: secondary to liver disease and thrombocytopenia. (7) Esophageal varices in cirrhosis Code(s): K74.60 - UNSPECIFIED CIRRHOSIS OF LIVER; I85.10 - SECONDARY ESOPHAGEAL VARICES WITHOUT BLEEDING Status: Chronic (8) HTN (hypertension) Code(s): I10 - ESSENTIAL (PRIMARY) HYPERTENSION Status: Chronic Comment: start PRN IV hydralazine (9) Hep C w/o coma, chronic Code(s): B18.2 - CHRONIC VIRAL HEPATITIS C Status: Chronic (10) Nonadherence to medical treatment Code(s): Z91.19 - PATIENT'S NONCOMPLIANCE W OTH MEDICAL TREATMENT AND REGIMEN Status: Chronic (11) Obesity (BMI 30.0-34.9) Code(s): E66.9 - OBESITY, UNSPECIFIED Status: Chronic (12) Thrombocytopenia Code(s): D69.6 - THROMBOCYTOPENIA, UNSPECIFIED Status: Chronic Comment: s/p platelet transfusion - Plan cont current plan of care, continue antibiotics * medication reviewed as below * symptomatic treatment * continue IV antibiotics * expecting discharge tomorrow. Review of Systems - Review of Systems ENT: negative: Ear Pain, Ear Discharge, Nose Pain, Nose Discharge, Nose Congestion, Mouth Pain, Mouth Swelling, Throat Pain, Throat Swelling, Other Respiratory: negative: Cough, Dry, Shortness of Breath, Hemoptysis, SOB with Excertion, Pleuritic Pain, Sputum, Wheezing Cardiovascular: negative: chest pain, palpitations, orthopnea, paroxysmal nocturnal dyspnea, edema, light headedness, other Gastrointestinal: negative: Nausea, Vomiting, Abdominal Pain, Diarrhea, Constipation, Melena, Hematochezia, Other Genitourinary: negative: Dysuria, Frequency, Incontinence, Hematuria, Retention , Other Musculoskeletal: negative: Neck Pain, Shoulder Pain, Arm Pain, Back Pain, Hand Pain, Leg Pain, Foot Pain, Other Skin: negative: Rash, Lesions, Edgar, Bruising, Other - Medications/Allergies Allergies/Adverse Reactions: Allergies Allergy/AdvReac Type Severity Reaction Status Date / Time No Known Drug Allergies Allergy Verified 03/12/18 14:48 Medications: Current Medications Acetaminophen (Tylenol) 650 mg PO Q4H PRN PRN Reason: Headache/Fever/Mild Pain (1-3) Hydrocodone Bitart/Acetaminophen ([place] 5/325) 1 tab PO Q4H PRN PRN Reason: Moderate Pain (4-6) Albuterol/Ipratropium (Duoneb) 3 ml NEB [id number] PRN PRN Reason: SOB &/or Wheezing Artificial Tears (Tears Naturale) 2 drop EA EYE PRN PRN PRN Reason: Dry Eyes Bisacodyl (Dulcolax) 10 mg [place] DAILYPRN PRN PRN Reason: Constipation Calcium Carbonate (Tums) 1,000 mg PO Q4H PRN PRN Reason: Heartburn or Indigestion Cyanocobalamin (Vitamin B-12) 1,000 mcg PO DAILY [facility] Last Admin: 06/29/18 08:47 Dose: 1,000 mcg Ferrous Sulfate (Feosol) 325 mg PO QA-[facility] Last Admin: 06/29/18 08:46 Dose: 325 mg Folic Acid (Folvite) 1 mg PO DAILY [facility] Last Admin: 06/29/18 08:46 Dose: 1 mg Guaifenesin (Robitussin Sf) 200 mg PO Q4H PRN PRN Reason: Cough Last Admin: 06/28/18 21:43 Dose: 200 mg Guaifenesin (Mucinex) 600 mg PO Q12HR [facility] Last Admin: 06/29/18 08:47 Dose: 600 mg Hydralazine HCl (Apresoline) 10 mg SLOW IVP Q4H PRN PRN Reason: SBP > 180 and HR < 70 Levofloxacin 750 mg/ Device 150 mls @ 100 mls/hr IVPB Q24HR [facility] Last Admin: 06/29/18 09:53 Dose: 150 mls Ceftriaxone Sodium 1 gm/ (Sodium Chloride) 100 mls @ 200 mls/hr IVPB Q24HR [facility] Last Admin: 06/29/18 03:26 Dose: 100 mls Lactulose (Lactulose) 20 gm PO BID [facility] Last Admin: 06/29/18 08:46 Dose: 20 gm Loperamide HCl (Imodium) 2 mg PO PRN PRN PRN Reason: Diarrhea/Loose Stools Loratadine (Claritin) 10 mg PO DAILYPRN PRN PRN Reason: Sinus Symptoms Metoclopramide HCl (Reglan) 5 mg IVP Q4H PRN PRN Reason: Nausea Mineral Oil/White Petrolatum (Eucerin Cream) 0 gm TOP BIDPRN PRN PRN Reason: Dry Skin Nadolol (Corgard) 40 mg PO BID [facility] Last Admin: 06/29/18 08:46 Dose: 40 mg Pantoprazole Sodium (Protonix) 40 mg PO DAILY [facility] Last Admin: 06/29/18 08:46 Dose: 40 mg Saccharomyces Boulardii (Florastor) 250 mg PO DAILY [facility] Last Admin: 06/29/18 08:46 Dose: 250 mg Senna/Docusate Sodium (Senokot S) 2 tab PO BIDPRN PRN PRN Reason: Constipation Sodium Chloride ([place] Nasal [place] 0.65%) 0 ml EA NARE QIDPRN PRN PRN Reason: Nasal Congestion Thiamine HCl (Thiamine) 100 mg PO DAILY [facility] Last Admin: 06/29/18 08:46 Dose: 100 mg Throat Lozenges (Cepastat Lozenges) 1 grabiel PO Q2H PRN PRN Reason: Sore Throat Zolpidem Tartrate (Ambien) 5 mg PO HSPRN PRN PRN Reason: Insomnia Last Admin: 06/28/18 20:11 Dose: 5 mg
[2018-06-29] MEDS: Zolpidem Tartrate 5 MG TAB PO PRN (20:18)
[2018-06-30] MEDS: Diabetic Tussin 200 MG/10 ML UDCUP PO PRN (00:28)
[2018-06-30] MEDS: cefTRIAXone\\ROCEPHIN 1 GM in Sodium Chloride 0.9% 100 ML IVPB SCH (03:17)
[2018-06-30] MEDS: Nadolol 40 MG TAB PO SCH (08:01)
[2018-06-30] MEDS: Thiamine 100 MG TAB PO SCH (08:01)
[2018-06-30] MEDS: Saccharomyces boulardii 250 MG CAP PO SCH (08:01)
[2018-06-30] MEDS: Folic Acid 1 MG TAB PO SCH (08:01)
[2018-06-30] MEDS: Cyanocobalamin (Vitamin B-12) 1,000 MCG TAB PO SCH (08:01)
[2018-06-30] MEDS: Ferrous Sulfate 325 MG TAB PO SCH (08:01)
[2018-06-30] MEDS: guaiFENesin ER 600 MG TAB PO SCH (08:01)
--- NOTE | 2018-06-30 12:16 | DIS ---
DATE OF ADMISSION: 06/27/2018 DATE OF DISCHARGE: 06/30/2018 PRIMARY CARE PHYSICIAN: [facility]. DISCHARGE DISPOSITION: Home. PRIMARY DISCHARGE DIAGNOSES: 1. Bronchopneumonia, multifocal. 2. Hyponatremia and hyperkalemia. SECONDARY DISCHARGE DIAGNOSES: Thrombocytopenia, obesity, medical noncompliance , hypertension, cirrhosis of liver with ascites, normocytic normochromic anemia, coagulopathy due to liver disease. PRIMARY PROCEDURE/OPERATION: None. RADIOLOGICAL INVESTIGATION: CT angiography, chest x-ray. SIGNIFICANT LABORATORY DATA: Hemoglobin 10.3. INR 1.6. Creatinine 0.75. DISCHARGE MEDICATIONS: 1. Vitamin B12 of 1000 mcg p.o. daily. 2. Ferrous sulfate 325 mg p.o. daily. 3. Folic acid 1 mg p.o. daily. 4. Lasix 40 mg p.o. daily. 5. Levaquin 500 mg p.o. daily for 5 more days. 6. Corgard 40 mg b.i.d. 7. Aldactone 100 mg daily. 8. Thiamine 100 mg p.o. daily. CONTRAINDICATION: None. CODE STATUS: Full code. INPATIENT MANAGER OFFICE: None. ALLERGIES: NO KNOWN DRUG ALLERGIES. DISCHARGE PLAN: Posthospital, the patient will follow up with [facility]. The patient will follow GI clinic and he is advised to get repeat chest x-ray by end of this month. HOSPITAL COURSE: A 58-year-old male, who was admitted by me. Please see my HPI for further details. The patient was admitted for bronchopneumonia which was multifocal, which was found with CT angiography which was negative for PE. The patient was having fever and cough, and his clinical presentation was consistent with pneumonia. We treated him with Rocephin and levofloxacin while in the hospital. On discharge, we changed to levofloxacin for another 5 days. Clinically, he is doing much better. He is on room air. He is ambulatory and tolerating p.o. well. He will follow up with primary care physician and he will have a repeat chest x-ray at the end of this month. I have seen and examined the patient at bedside today and his examination is completely normal. His vitals are stable. The patient is overall medically stable for discharge today. Job ID: [id number] [facility]
--- NOTE | 2018-06-30 12:48 | PDOC.PN ---
- Subjective Encounter Start Date: 06/30/18 Encounter Start Time: 11:20 Patient seen and examined. No new complaints. No overnight events - Objective Resuscitation Status - Order Detail: 06/27/18 08:11 Resuscitation Status Routine Resuscitation Status: FULL: Full Resuscitation MAR Reviewed: Yes Vital Signs & Weight: Vital Signs (12 hours) Temp Pulse Resp BP BP Pulse Ox 06/30/18 08:00 98.2 F 77 18 99/61 98 06/30/18 03:43 98.1 F 75 18 125/71 98 Weight Admit Weight 199 lb 9 oz Weight 192 lb 4.8 oz I&O: 06/29/18 06/30/18 07/01/18 06:59 06:59 06:59 Intake Total 1120 620 240 Balance 1120 620 240 Result Diagrams: 06/29/18 08:38 06/29/18 08:37 Additional Labs: Accuchecks 06/30/18 06/30/18 06/29/18 12:07 05:51 20:29 POC Glucose 113 H 171 H 161 H 06/29/18 16:45 POC Glucose 147 H Phys Exam - Physical Examination Constitutional: NAD HEENT: moist MMs Neck: no JVD, supple Respiratory: no wheezing, no rales, no rhonchi Cardiovascular: RRR, no significant murmur, no rub Gastrointestinal: soft, non-tender, no distention, positive bowel sounds Musculoskeletal: no edema, pulses present Neurological: non-focal, normal sensation Lymphatic: no nodes Psychiatric: normal affect, A&O x 3 Skin: no rash, normal turgor Dx/Plan (1) Hyperkalemia Code(s): E87.5 - HYPERKALEMIA Status: Acute (2) Hyponatremia Code(s): E87.1 - HYPO-OSMOLALITY AND HYPONATREMIA Status: Acute (3) Multifocal pneumonia Code(s): J18.9 - PNEUMONIA, UNSPECIFIED ORGANISM Status: Acute (4) Anemia, normocytic normochromic Code(s): D64.9 - ANEMIA, UNSPECIFIED Status: Chronic (5) Cirrhosis of liver with ascites Code(s): K74.60 - UNSPECIFIED CIRRHOSIS OF LIVER; R18.8 - OTHER ASCITES Status : Chronic (6) Coagulopathy Status: Chronic Comment: secondary to liver disease and thrombocytopenia. (7) Esophageal varices in cirrhosis Code(s): K74.60 - UNSPECIFIED CIRRHOSIS OF LIVER; I85.10 - SECONDARY ESOPHAGEAL VARICES WITHOUT BLEEDING Status: Chronic (8) HTN (hypertension) Code(s): I10 - ESSENTIAL (PRIMARY) HYPERTENSION Status: Chronic Comment: start PRN IV hydralazine (9) Hep C w/o coma, chronic Code(s): B18.2 - CHRONIC VIRAL HEPATITIS C Status: Chronic (10) Nonadherence to medical treatment Code(s): Z91.19 - PATIENT'S NONCOMPLIANCE W OTH MEDICAL TREATMENT AND REGIMEN Status: Chronic (11) Obesity (BMI 30.0-34.9) Code(s): E66.9 - OBESITY, UNSPECIFIED Status: Chronic (12) Thrombocytopenia Code(s): D69.6 - THROMBOCYTOPENIA, UNSPECIFIED Status: Chronic Comment: s/p platelet transfusion - Plan cont current plan of care * medication reviewed as below * symptomatic treatment * see discharge michela. Review of Systems - Review of Systems ENT: negative: Ear Pain, Ear Discharge, Nose Pain, Nose Discharge, Nose Congestion, Mouth Pain, Mouth Swelling, Throat Pain, Throat Swelling, Other Respiratory: negative: Cough, Dry, Shortness of Breath, Hemoptysis, SOB with Excertion, Pleuritic Pain, Sputum, Wheezing Cardiovascular: negative: chest pain, palpitations, orthopnea, paroxysmal nocturnal dyspnea, edema, light headedness, other Gastrointestinal: negative: Nausea, Vomiting, Abdominal Pain, Diarrhea, Constipation, Melena, Hematochezia, Other Genitourinary: negative: Dysuria, Frequency, Incontinence, Hematuria, Retention , Other Musculoskeletal: negative: Neck Pain, Shoulder Pain, Arm Pain, Back Pain, Hand Pain, Leg Pain, Foot Pain, Other - Medications/Allergies Allergies/Adverse Reactions: Allergies Allergy/AdvReac Type Severity Reaction Status Date / Time No Known Drug Allergies Allergy Verified 03/12/18 14:48 Medications: Current Medications Acetaminophen (Tylenol) 650 mg PO Q4H PRN PRN Reason: Headache/Fever/Mild Pain (1-3) Hydrocodone Bitart/Acetaminophen ([place] 5/325) 1 tab PO Q4H PRN PRN Reason: Moderate Pain (4-6) Albuterol/Ipratropium (Duoneb) 3 ml NEB [id number] PRN PRN Reason: SOB &/or Wheezing Artificial Tears (Tears Naturale) 2 drop EA EYE PRN PRN PRN Reason: Dry Eyes Bisacodyl (Dulcolax) 10 mg [place] DAILYPRN PRN PRN Reason: Constipation Calcium Carbonate (Tums) 1,000 mg PO Q4H PRN PRN Reason: Heartburn or Indigestion Cyanocobalamin (Vitamin B-12) 1,000 mcg PO DAILY [facility] Last Admin: 06/30/18 08:01 Dose: 1,000 mcg Ferrous Sulfate (Feosol) 325 mg PO QAM[facility] Last Admin: 06/30/18 08:01 Dose: 325 mg Folic Acid (Folvite) 1 mg PO DAILY [facility] Last Admin: 06/30/18 08:01 Dose: 1 mg Guaifenesin (Robitussin Sf) 200 mg PO Q4H PRN PRN Reason: Cough Last Admin: 06/30/18 00:28 Dose: 200 mg Guaifenesin (Mucinex) 600 mg PO Q12HR [facility] Last Admin: 06/30/18 08:01 Dose: 600 mg Hydralazine HCl (Apresoline) 10 mg SLOW IVP Q4H PRN PRN Reason: SBP > 180 and HR < 70 Levofloxacin 750 mg/ Device 150 mls @ 100 mls/hr IVPB Q24HR [facility] Last Admin: 06/30/18 09:53 Dose: 150 mls Ceftriaxone Sodium 1 gm/ (Sodium Chloride) 100 mls @ 200 mls/hr IVPB Q24HR [facility] Last Admin: 06/30/18 03:17 Dose: 100 mls Lactulose (Lactulose) 20 gm PO BID [facility] Last Admin: 06/30/18 08:01 Dose: 20 gm Loperamide HCl (Imodium) 2 mg PO PRN PRN PRN Reason: Diarrhea/Loose Stools Loratadine (Claritin) 10 mg PO DAILYPRN PRN PRN Reason: Sinus Symptoms Metoclopramide HCl (Reglan) 5 mg IVP Q4H PRN PRN Reason: Nausea Mineral Oil/White Petrolatum (Eucerin Cream) 0 gm TOP BIDPRN PRN PRN Reason: Dry Skin Nadolol (Corgard) 40 mg PO BID [facility] Last Admin: 06/30/18 08:01 Dose: 40 mg Pantoprazole Sodium (Protonix) 40 mg PO DAILY [facility] Last Admin: 06/30/18 08:01 Dose: 40 mg Saccharomyces Boulardii (Florastor) 250 mg PO DAILY [facility] Last Admin: 06/30/18 08:01 Dose: 250 mg Senna/Docusate Sodium (Senokot S) 2 tab PO BIDPRN PRN PRN Reason: Constipation Sodium Chloride ([place] Nasal [place] 0.65%) 0 ml EA NARE QIDPRN PRN PRN Reason: Nasal Congestion Thiamine HCl (Thiamine) 100 mg PO DAILY [facility] Last Admin: 06/30/18 08:01 Dose: 100 mg Throat Lozenges (Cepastat Lozenges) 1 grabiel PO Q2H PRN PRN Reason: Sore Throat Zolpidem Tartrate (Ambien) 5 mg PO HSPRN PRN PRN Reason: Insomnia Last Admin: 06/29/18 20:18 Dose: 5 mg
[2018-06-30 15:25] VITALS: BP 138/76; TEMP 98.1
== END 2018-06-30 15:28 | disposition home or self-care (01) | DRG 194 ==
LOC: ERS 20:23 → T4-B 06-27 03:34
PROVIDERS: ADMIT Hospitalist; ATTEND Hospitalist
DX: J18.0 Bronchopneumonia, unspecified organism (principal); E87.1 Hypo-osmolality and hyponatremia; R18.8 Other ascites; I85.10 Secondary esophageal varices without bleeding; D68.4 Acquired coagulation factor deficiency; K74.60 Unspecified cirrhosis of liver; D69.6 Thrombocytopenia, unspecified; E87.5 Hyperkalemia; E66.9 Obesity, unspecified; B18.2 Chronic viral hepatitis C; D64.9 Anemia, unspecified; I10 Essential (primary) hypertension; Z85.05 Personal history of malignant neoplasm of liver; Z68.33 Body mass index [BMI] 33.0-33.9, adult; Z91.19 Patient's noncompliance with other medical treatment and regimen
CPT/HCPCS: 36415; 36416; 71046; 71275; 80053; 81003; 81015; 82140; 83690; 84484; 85025; 85379; 85610; 85730; 87040; 87086; 87804; 93005; 96361; 96365; 96367; J0456; J0696; J1956; J7050; Q9966

== ENCOUNTER 2018-08-17 08:42 | Outpatient (CLI) | payer OTHER ==
[2018-08-17] MEDS ORDERED: Iopamidol 370 76% 100 ML VIAL ONE (11:30)
--- NOTE | 2018-08-17 13:18 | CT ---
CT CHEST AND ABDOMEN AND PELVIS WITH IV CONTRAST: Date: 08/17/18 INDICATION: History of hepatocellular carcinoma and cirrhosis of the liver. COMPARISON: Prior CTA of the thorax dated 06/27/18. FINDINGS: The extent of the scattered reticulonodularity suspicious on the prior examination of bronchiolitis w ith bronchopneumonia has improved. There are some residual areas of reticulonodularity within the rig ht upper lobe and right lower lobe. No confluent air space opacity is evident. No pleural effusion is noted. Calcified granuloma of the right lower lobe is stable. No enlarged lymph nodes evident. Stable bilateral gynecomastia. Again seen is a cirrhotic contour to the liver. There are small, simple cysts within the left and rig ht hepatic lobe. The gallbladder is mildly distended with associated stone, appears stable to prior exam. Pancreas and right adrenal gland are normal appearing. The 4 cm left adrenal myelolipoma is stable. Splenomegaly is present, measuring 18 cm. Kidneys are normal appearing. There are a few shotty appearing lymph nodes within the upper abdomen that appear stable to the prior examination. There is mild ascites. There is wall thickening involving the loop of colon, which may be related to underdistention. There is scattered diverticula involving the colon. There is a normal appendix in the right lower quadrant. Small bowel is normal appearing. There is stable post-traumatic deformity involving the left posterolateral chest wall. No acute osseous abnormality is evident. IMPRESSION: 1. Significant improvement in the scattered areas of bronchopneumonia and reticulonodularity affecti ng both lungs. Some mild residual reticulonodularity is seen within the right lung, likely reflecting residual bronchiolitis. Continued CT follow-up of chest recommended. 2. Cirrhotic morphology of the liver with small cysts and findings of portal hypertension. 3. Stable cholelithiasis. 4. Stable left adrenal myelolipoma. 5. Small focal area of thickening with scattered colonic diverticula involving the sigmoid colon. Th e apparent wall thickening may be related to underdistention; however, a component of a diverticuliti s cannot be entirely excluded. Recommend correlation with the clinical exam. POS: [facility]
== END 2018-08-17 08:43 | disposition home or self-care (01) ==
LOC: CT 08:42
PROVIDERS: ATTEND Internal Medicine Hematology & Oncology
DX: C22.0 Liver cell carcinoma (principal); J18.0 Bronchopneumonia, unspecified organism; K80.20 Calculus of gallbladder without cholecystitis without obstruction; D17.79 Benign lipomatous neoplasm of other sites; K57.30 Diverticulosis of large intestine without perforation or abscess without bleeding; K63.89 Other specified diseases of intestine; R91.1 Solitary pulmonary nodule; K74.60 Unspecified cirrhosis of liver; K76.89 Other specified diseases of liver; K76.6 Portal hypertension
CPT/HCPCS: 71260; 74177; Q9967

== ENCOUNTER 2018-09-15 11:59 | Day surgery (SDC) | payer OTHER, SELFPAY ==
[~2018-09-15 11:59] MED LIST changes: -ISOVUE-370 76%-LOCM 1 ML ONE; +Nivolumab 240 MG in Sodium Chloride 0.9% 250 ML 136 ML IVPB SCH; +Nivolumab 240 MG in Sodium Chloride 0.9% 250 ML 250 ML IVPB SCH
[2018-09-15 12:48] VITALS: BP 164/69; TEMP 98.3
== END 2018-09-15 14:59 | disposition home or self-care (01) ==
LOC: ONC/OP 11:59
PROVIDERS: ATTEND Internal Medicine Hematology & Oncology
DX: Z51.11 Encounter for antineoplastic chemotherapy (principal); C22.0 Liver cell carcinoma
CPT/HCPCS: 96413; J7050; J9299

== ENCOUNTER 2018-09-29 09:44 | Day surgery (SDC) | payer SELFPAY ==
[~2018-09-29 09:44] MED LIST changes: -Nivolumab 240 MG in Sodium Chloride 0.9% 250 ML 136 ML IVPB SCH
[2018-09-29] MEDS ORDERED: Sodium Chloride 0.9% 20 ML ONE (09:55)
[2018-09-29 10:09] VITALS: BP 147/67; TEMP 97.8
== END 2018-09-29 13:17 | disposition home or self-care (01) ==
LOC: ONC/OP 09:44
PROVIDERS: ATTEND Internal Medicine Hematology & Oncology
DX: Z51.11 Encounter for antineoplastic chemotherapy (principal); C22.0 Liver cell carcinoma
CPT/HCPCS: 96413

== ENCOUNTER 2018-10-13 09:56 | Day surgery (SDC) | payer SELFPAY ==
[2018-10-13] MEDS ORDERED: Sodium Chloride 0.9% 20 ML ONE (10:05)
[2018-10-13 14:12] VITALS: BP 159/69; TEMP 97.6
== END 2018-10-13 15:48 | disposition home or self-care (01) ==
LOC: ONC/OP 09:56
PROVIDERS: ATTEND Internal Medicine Hematology & Oncology
DX: Z51.11 Encounter for antineoplastic chemotherapy (principal); C22.0 Liver cell carcinoma
CPT/HCPCS: 96413

== ENCOUNTER 2018-10-27 08:41 | Day surgery (SDC) | payer SELFPAY ==
[2018-10-27] MEDS ORDERED: Sodium Chloride 0.9% 20 ML ONE (08:55)
[2018-10-27] MEDS ORDERED: SODIUM CHLORIDE 0.9% IVPB SCH (09:15)
[2018-10-27] MEDS ORDERED: NIVOLUMAB IVPB SCH (09:15)
[2018-10-27 09:21] VITALS: BP 146/67; TEMP 97.9
[2018-10-27] MEDS ORDERED: Nivolumab 240 MG in Sodium Chloride 0.9% 250 ML 250 ML IVPB SCH (09:45)
== END 2018-10-27 14:04 | disposition home or self-care (01) ==
LOC: ONC/OP 08:41
PROVIDERS: ATTEND Internal Medicine Hematology & Oncology
DX: Z51.11 Encounter for antineoplastic chemotherapy (principal); C22.0 Liver cell carcinoma
CPT/HCPCS: 96413; J7050; J9299

== ENCOUNTER 2018-11-10 09:42 | Day surgery (SDC) | payer SELFPAY ==
[2018-11-10] MEDS ORDERED: Sodium Chloride 0.9% 20 ML ONE (09:55)
[2018-11-10] MEDS ORDERED: Nivolumab 240 MG in Sodium Chloride 0.9% 250 ML 250 ML IVPB SCH (10:30)
[2018-11-10 10:45] VITALS: BP 145/64; TEMP 97.8
== END 2018-11-10 12:17 | disposition home or self-care (01) ==
LOC: ONC/OP 09:42
PROVIDERS: ATTEND Internal Medicine Hematology & Oncology
DX: Z51.12 Encounter for antineoplastic immunotherapy (principal); C22.0 Liver cell carcinoma
CPT/HCPCS: 96413; J7050; J9299

== ENCOUNTER 2018-11-24 10:00 | Day surgery (SDC) | payer SELFPAY ==
[2018-11-24] MEDS ORDERED: Sodium Chloride 0.9% 20 ML ONE (10:20)
[2018-11-24 11:08] VITALS: BP 151/69; TEMP 97.7
== END 2018-11-24 13:29 | disposition home or self-care (01) ==
LOC: ONC/OP 10:00
PROVIDERS: ATTEND Internal Medicine Hematology & Oncology
DX: Z51.12 Encounter for antineoplastic immunotherapy (principal); C22.0 Liver cell carcinoma
CPT/HCPCS: 96413

== ENCOUNTER 2018-12-01 08:15 | Outpatient (CLI) | payer OTHER ==
--- NOTE | 2018-12-01 10:20 | CT ---
Exam: Chest, abdomen, and pelvic CT scan with IV contrast: HISTORY: Liver cell cancer COMPARISON: 08/17/2018 FINDINGS: Multiple new bilateral reticular nodular parenchymal changes in the right upper lobe, right lower lob e, left lower lobe, and left upper lobe from the prior study. Findings are nonspecific and could represent multiple focal areas of pneumonitis. New circumscribed 0.6 cm diameter nodule in the right lower lobe adjacent to the major fissure. The circumscribed appearance is more the appearance of potential metastasis or developing pulmonary nodule. No mediastinal mass or adenopathy. No pleural ef fusion or pericardial effusion. Slightly progressive ascites. Cirrhotic nodular appearance of the liver with stable low-attenuation f oci throughout the liver. Stable cholelithiasis without evidence for acute cholecystitis. Stable splenomegaly. Stable minimally enlarged jenise hepatis and gastrohepatic hepatic lymph nodes. Stable l eft adrenal myelolipoma. Normal-appearing appendix. Colonic diverticulosis without acute diverticulitis. IMPRESSION: Multifocal reticular nodular parenchymal changes, new, in the right upper lobe, right lower lobe, lef t upper lobe, lower lobe, nonspecific possibly pneumonitis. New 0.6 cm diameter circumscribed nodule in the right lower lobe which is more worrisome for a potent ial metastasis or other pulmonary nodule. Short-term follow-up in this regard is suggested. Minimally progressive ascites. Evidence for cirrhosis and splenomegaly as well as other stable findings.
[2018-12-01] MEDS ORDERED: Iopamidol 370 76% 100 ML VIAL ONE (16:39)
== END 2018-12-01 08:16 | disposition home or self-care (01) ==
LOC: CT 08:15
PROVIDERS: ATTEND Internal Medicine Hematology & Oncology
DX: C22.0 Liver cell carcinoma (principal); R91.1 Solitary pulmonary nodule
CPT/HCPCS: 71260; 74177; Q9967

== ENCOUNTER 2018-12-08 10:36 | Day surgery (SDC) | payer OTHER, SELFPAY ==
[2018-12-08 11:39] VITALS: BP 137/63; TEMP 98
== END 2018-12-08 12:52 | disposition home or self-care (01) ==
LOC: ONC/OP 10:36
PROVIDERS: ATTEND Internal Medicine Hematology & Oncology
DX: Z51.12 Encounter for antineoplastic immunotherapy (principal); C22.0 Liver cell carcinoma
CPT/HCPCS: 96413

== ENCOUNTER 2018-12-22 09:45 | Day surgery (SDC) | payer OTHER, SELFPAY ==
[~2018-12-22 09:45] MED LIST changes: +Nivolumab 240 MG in Sodium Chloride 0.9% 250 ML 136 ML IVPB SCH; -Nivolumab 240 MG in Sodium Chloride 0.9% 250 ML 250 ML IVPB SCH
[2018-12-22 09:59] VITALS: BP 142/67; TEMP 98.1
[2018-12-22] MEDS ORDERED: Sodium Chloride 0.9% 20 ML ONE (10:03)
== END 2018-12-22 12:42 | disposition home or self-care (01) ==
LOC: ONC/OP 09:45
PROVIDERS: ATTEND Internal Medicine Hematology & Oncology
DX: Z51.12 Encounter for antineoplastic immunotherapy (principal); C22.0 Liver cell carcinoma
CPT/HCPCS: 96413; J7050; J9299

== ENCOUNTER 2019-01-05 11:17 | Day surgery (SDC) | payer OTHER ==
[2019-01-05] MEDS ORDERED: NIVOLUMAB IVPB SCH (11:30)
[2019-01-05] MEDS ORDERED: SODIUM CHLORIDE 0.9% IVPB SCH (11:30)
[2019-01-05 12:26] VITALS: BP 142/66; TEMP 98
== END 2019-01-05 12:39 | disposition home or self-care (01) ==
LOC: ONC/OP 11:17
PROVIDERS: ATTEND Internal Medicine Hematology & Oncology
DX: Z51.12 Encounter for antineoplastic immunotherapy (principal); C22.0 Liver cell carcinoma
CPT/HCPCS: 96413

== ENCOUNTER 2019-01-07 10:26 | Emergency (ER) | payer OTHER ==
[2019-01-07] MEDS ORDERED: Lidocaine Viscous Sol 2% 15 ml UD Cup ONE (13:17)
[2019-01-07] MEDS ORDERED: Mag-Al 1200 mg/1200 mg/30 ML UDCUP ONE (13:17)
[2019-01-07 13:42] LABS: Hemoglobin 9.8 g/dL (14.0-18.0); Mean Corpuscular HGB CONC 34.8 g/dL (32.0-36.0); Mean Corpuscular Hemoglobin 33.3 pg (27.0-31.0); Mean Corpuscular Volume 95.7 fL (78.0-98.0); RBC Distribution Width 18.5 % (11.5-14.5); Red Blood Cell (RBC) Count 2.95 mill/uL (4.70-6.10)
[2019-01-07 14:03] LABS: ALT (SGPT) 30 U/L (8-55); AST (SGOT) 52 U/L (5-34); Albumin 2.9 g/dL (3.5-5.0); Alkaline Phosphatase 135 U/L (40-110); Anion Gap 11 mmol/L (10-20); BUN (Urea Nitrogen) 17 mg/dL (8.4-25.7); Bilirubin, Total 3.8 mg/dL (0.2-1.2); Calc. Creatinine Clearance 0 mL/min (70-130); Calcium 8.6 mg/dL (7.8-10.44); Carbon Dioxide 23 mmol/L (22-29); Chloride 100 mmol/L (98-107); Estimated GFR-MDRD 69; Globulin 3.7 g/dL (2.4-3.5); Glucose 122 mg/dL (70-105); Potassium 4.6 mmol/L (3.5-5.1); Protein, Total 6.6 g/dL (6.0-8.3); Sodium 129 mmol/L (136-145)
[2019-01-07 14:06] LABS: #Eosinphils 0.1 thou/uL (0.0-0.7); #Lymphocytes 0.5 thou/uL (1.20-3.40); #Monocytes 0.5 thou/uL (0.11-0.59); #Neutrophils 2.9 thou/uL (1.40-6.50); %Basophils 0.7 % (0.0-1.0); %Eosinophils 1.8 % (0.0-10.0); %Lymphocytes 13.2 % (21.0-51.0); %Monocytes 11.6 % (0.0-10.0); %Neutrophils 72.6 % (42.0-75.0); Anisocytosis SLIGHT = 6-15 cells (100X) (0-5/hpf); MDiff Complete? YES; Mean Platelet Volume 14.5 fL (7.4-10.4); Platelet Count 39 thou/uL (130-400); Platelet Morphology Comment Appears Decreased
== END 2019-01-07 15:07 | disposition home or self-care (01) ==
LOC: ERS 10:26
DX: R10.9 Unspecified abdominal pain (principal); I10 Essential (primary) hypertension; Z79.899 Other long term (current) drug therapy
CPT/HCPCS: 36415; 80053; 85025; 99284

== ENCOUNTER 2019-01-12 10:55 | Outpatient (CLI) | payer OTHER ==
--- NOTE | 2019-01-12 13:37 | CT ---
CHEST CT SCAN WITH IV CONTRAST: HISTORY: Liver cell carcinoma. Follow up pulmonary nodules. COMPARISON: 12/01/2018 FINDINGS: There are multiple bilateral nodular, linear and reticulonodular parenchymal changes again noted. Patrick e of these show some very subtle improvement but for the most part they are stable. There does not ap pear to be any overt worsening or increase in size. No pleural or pericardial effusion. Stable appear ing cirrhotic liver and splenomegaly, less marked ascites and gallstones with somewhat stable appeari ng edematous gallbladder wall and stable hypodensities in the liver. Stable fatty left adrenal mass, evidence for a myolipoma. IMPRESSION: Multiple bilateral nodular and reticulonodular parenchymal changes showing very little change when co mpared to the prior study. Several of these multiple areas appear to be very slightly improved but fo r the most part are unchanged. No evidence for worsening. Other findings as above appear stable. POS: [facility]
== END 2019-01-12 10:56 | disposition home or self-care (01) ==
LOC: BICCT 10:55
PROVIDERS: ATTEND Internal Medicine Hematology & Oncology
DX: J18.9 Pneumonia, unspecified organism (principal); C22.0 Liver cell carcinoma; R91.8 Other nonspecific abnormal finding of lung field
CPT/HCPCS: 71260

== ENCOUNTER 2019-01-19 09:49 | Day surgery (SDC) | payer OTHER ==
[2019-01-19 10:36] VITALS: BP 162/68; TEMP 98.3
== END 2019-01-19 11:52 | disposition home or self-care (01) ==
LOC: ONC/OP 09:49
PROVIDERS: ATTEND Internal Medicine Hematology & Oncology
DX: Z51.12 Encounter for antineoplastic immunotherapy (principal); C22.0 Liver cell carcinoma
CPT/HCPCS: 96413

== ENCOUNTER 2019-02-09 10:22 | Outpatient (CLI) | payer OTHER ==
--- NOTE | 2019-02-09 12:34 | CT ---
CT ABDOMEN AND PELVIS WITH ORAL AND IV CONTRAST: Date: 02/09/19 HISTORY: Liver cell carcinoma. COMPARISON: 12/01/18, 08/17/18, and 01/12/19. FINDINGS: There has been interval increase in sizes of the nodules in the right lower lobe, measuring 15 and 13 mm, respectively. Reticulonodular changes in the left lower lobe have improved. Changes of cirrhosis of the liver and hepatic cysts are stable. The spleen is enlarged, measuring 18. 0 cm in length. Cholelithiasis is again noted. Moderate ascites is stable. The pancreas, right adrena l gland, and kidneys are normal. Left adrenal myelolipoma is stable. The small bowel loops are not abnormally dilated. There is colonic diverticulosis. No free air is see n. The minimally enlarged lymph nodes in the jenise hepatis and gastrohepatic ligament are stable. The re are vascular calcifications without evidence of aneurysmal dilatation of the abdominal aorta. Ther e are degenerative changes in the spine. No osteolytic or osteoblastic lesions are seen. IMPRESSION: 1. Interval worsening of lung metastases since 01/12/19. 2. Stable findings of the abdomen and pelvis since 12/01/18. POS: [facility]
[2019-02-09] MEDS ORDERED: Iopamidol-370 76% 500 ML 1 ML ONE (13:55)
== END 2019-02-09 10:23 | disposition home or self-care (01) ==
LOC: BICCT 10:22
PROVIDERS: ATTEND Internal Medicine Hematology & Oncology
DX: C22.0 Liver cell carcinoma (principal); C78.01 Secondary malignant neoplasm of right lung
CPT/HCPCS: 74177; Q9967

== ENCOUNTER 2019-02-16 10:57 | Day surgery (SDC) | payer OTHER ==
[2019-02-16 11:52] VITALS: BP 140/65; TEMP 98.3
== END 2019-02-16 16:03 | disposition home or self-care (01) ==
LOC: ONC/OP 10:57
PROVIDERS: ATTEND Internal Medicine Hematology & Oncology
DX: Z51.12 Encounter for antineoplastic immunotherapy (principal); C22.0 Liver cell carcinoma
CPT/HCPCS: 96413; J7050; J9299

== ENCOUNTER 2019-03-02 08:30 | Day surgery (SDC) | payer OTHER ==
[2019-03-02] MEDS ORDERED: NIVOLUMAB IVPB SCH (12:30)
[2019-03-02] MEDS ORDERED: SODIUM CHLORIDE 0.9% IVPB SCH (12:30)
[2019-03-02 15:12] VITALS: BP 137/63; TEMP 98.3
== END 2019-03-02 15:14 | disposition home or self-care (01) ==
LOC: ONC/OP 08:30
PROVIDERS: ATTEND Internal Medicine Hematology & Oncology
DX: Z51.12 Encounter for antineoplastic immunotherapy (principal); C22.0 Liver cell carcinoma
CPT/HCPCS: 96413

== ENCOUNTER 2019-03-16 09:57 | Day surgery (SDC) | payer OTHER ==
[~2019-03-16 09:57] MED LIST changes: +NIVOLUMAB IVPB SCH; -Nivolumab 240 MG in Sodium Chloride 0.9% 250 ML 136 ML IVPB SCH; +SODIUM CHLORIDE 0.9% IVPB SCH
[2019-03-16] MEDS ORDERED: Sodium Chloride 0.9% 20 ML ONE (10:10)
[2019-03-16 11:32] VITALS: BP 132/63; TEMP 98.2
== END 2019-03-16 11:31 | disposition home or self-care (01) ==
LOC: ONC/OP 09:57
PROVIDERS: ATTEND Internal Medicine Hematology & Oncology
DX: Z51.12 Encounter for antineoplastic immunotherapy (principal); C22.0 Liver cell carcinoma
CPT/HCPCS: 96413

== ENCOUNTER 2019-03-31 09:05 | Outpatient (CLI) | payer OTHER ==
[2019-03-31] MEDS ORDERED: Iopamidol-370 76% 500 ML 1 ML ONE (10:40)
--- NOTE | 2019-03-31 10:46 | CT ---
CT of the thorax with and without IV contrast INDICATION: History of carcinoma with pulmonary metastatic disease COMPARISON: Prior CT of the chest dated January 12, [address] the abdomen and pelvis dated 2018. FINDINGS: There is been interval development of a new pulmonary nodule in the anterior lateral right lower lobe measuring 8.4 mm on image 74 of series 4. There is an enlarging pulmonary nodule in the right lower lobe on image 60 series 4 measuring 1.1 cm. There is a new pulmonary nodule in the lingul a measuring 6.7 mm on image 52 of series 4. The reticular nodular opacities involving the posterior aspects of both lower lobes are stable. The reticular nodularity involving the upper lobes is stable. Calcified lymph nodes of the mediastinum are similar appearing. Vascular calcifications of the thoracic aorta and coronary arteries is similar appearing. Bilateral male gynecomastia is again seen. Cirrhotic morphology of the liver is again noted. Cholelithiasis is stable. Left adrenal myelolipoma is stable.. Mild ascites is seen within the upper abdomen. Spleen remains enlarged. Adeno zurdo of the upper abdomen is stable appearing. Chronic osseous changes are stable appearing. IMPRESSION: 1. New pulmonary nodules identified within the right lower lobe suspicious for worsening pulmonary me tastatic disease. 2. Scattered areas of reticular nodularity along both lower lobes and both upper lobes is relatively stable. 3. Cirrhosis with findings of portal hypertension. 4. Cholelithiasis. 5. Left adrenal myelolipoma. 6. Stable upper abdominal lymphadenopathy
== END 2019-03-31 09:06 | disposition home or self-care (01) ==
LOC: BICCT 09:05
PROVIDERS: ATTEND Internal Medicine Hematology & Oncology
DX: C22.0 Liver cell carcinoma (principal); C78.00 Secondary malignant neoplasm of unspecified lung; R91.8 Other nonspecific abnormal finding of lung field; K74.60 Unspecified cirrhosis of liver; K80.20 Calculus of gallbladder without cholecystitis without obstruction; D17.79 Benign lipomatous neoplasm of other sites; R59.0 Localized enlarged lymph nodes
CPT/HCPCS: 71270; 74177; Q9967

== ENCOUNTER 2019-04-01 10:57 | Day surgery (SDC) | payer OTHER ==
[2019-04-01] MEDS ORDERED: Sodium Chloride 0.9% 20 ML ONE (11:06)
[2019-04-01 12:59] VITALS: BP 146/65; TEMP 98.3
== END 2019-04-01 12:59 | disposition home or self-care (01) ==
LOC: ONC/OP 10:57
PROVIDERS: ATTEND Internal Medicine Hematology & Oncology
DX: Z51.12 Encounter for antineoplastic immunotherapy (principal); C22.0 Liver cell carcinoma
CPT/HCPCS: 96413

== ENCOUNTER 2019-04-15 09:29 | Day surgery (SDC) | payer OTHER ==
[2019-04-15] MEDS ORDERED: Sodium Chloride 0.9% 20 ML ONE (09:34)
[2019-04-15 10:02] VITALS: BP 140/64; TEMP 98.4
== END 2019-04-15 11:13 | disposition home or self-care (01) ==
LOC: ONC/OP 09:29
PROVIDERS: ATTEND Internal Medicine Hematology & Oncology
DX: Z51.11 Encounter for antineoplastic chemotherapy (principal); C22.0 Liver cell carcinoma
CPT/HCPCS: 96413

== ENCOUNTER 2019-04-29 09:59 | Day surgery (SDC) | payer OTHER ==
[2019-04-29 10:06] VITALS: BP 157/68; TEMP 98.2
[2019-04-29] MEDS ORDERED: Sodium Chloride 0.9% 20 ML ONE (10:07)
== END 2019-04-29 11:31 | disposition home or self-care (01) ==
LOC: ONC/OP 09:59
PROVIDERS: ATTEND Internal Medicine Hematology & Oncology
DX: Z51.12 Encounter for antineoplastic immunotherapy (principal); C22.0 Liver cell carcinoma
CPT/HCPCS: 96413; J3490; J9299

== ENCOUNTER 2019-05-04 11:11 | Emergency (ER) | payer OTHER ==
[2019-05-04 12:17] LABS: ALT (SGPT) 23 U/L (8-55); AST (SGOT) 50 U/L (5-34); Albumin 2.9 g/dL (3.5-5.0); Alkaline Phosphatase 192 U/L (40-110); Anion Gap 10 mmol/L (10-20); BUN (Urea Nitrogen) 19 mg/dL (8.4-25.7); Bilirubin, Total 2.9 mg/dL (0.2-1.2); Calc. Creatinine Clearance 0 mL/min (70-130); Calcium 8.2 mg/dL (7.8-10.44); Carbon Dioxide 21 mmol/L (22-29); Chloride 101 mmol/L (98-107); Estimated GFR-MDRD 61; Globulin 3.8 g/dL (2.4-3.5); Glucose 130 mg/dL (70-105); Potassium 4.2 mmol/L (3.5-5.1); Protein, Total 6.7 g/dL (6.0-8.3); Sodium 128 mmol/L (136-145)
[2019-05-04 12:20] LABS: #Basophils 0.1 thou/uL (0.0-0.2); #Eosinphils 0.3 thou/uL (0.0-0.7); #Lymphocytes 0.8 thou/uL (1.20-3.40); #Monocytes 0.7 thou/uL (0.11-0.59); #Neutrophils 3.6 thou/uL (1.40-6.50); %Eosinophils 6.3 % (0.0-10.0); %Lymphocytes 14.5 % (21.0-51.0); %Monocytes 12.2 % (0.0-10.0); Anisocytosis SLIGHT = 6-15 cells (100X) (0-5/hpf); Burr Cells SLIGHT = 2-5 cells (100X) (0-1/hpf); Hemoglobin 9.4 g/dL (14.0-18.0); MDiff Complete? YES; Mean Corpuscular HGB CONC 32.2 g/dL (32.0-36.0); Mean Corpuscular Hemoglobin 31.8 pg (27.0-31.0); Mean Corpuscular Volume 98.5 fL (78.0-98.0); Mean Platelet Volume 7.8 fL (7.4-10.4); Platelet Count 66 thou/uL (130-400); Platelet Morphology Comment Appears Decreased; Polychromasia SLIGHT = 2-3 cells (100X) (0-2/hpf); RBC Distribution Width 18.4 % (11.5-14.5); Red Blood Cell (RBC) Count 2.96 mill/uL (4.70-6.10); Schistocytes SLIGHT = 2-5 cells (100X) (0-1/hpf); Spherocytes SLIGHT = 1-5 cells (100X) (None Seen); White Blood Cell (WBC) Count 5.5 thou/uL (4.8-10.8)
[2019-05-04 12:28] LABS: INR-International Normal Ratio 1.7; PTT 36.1 SEC (22.9-36.1); Prothrombin Time 19.9 SEC (12.0-14.7)
== END 2019-05-04 14:00 | disposition home or self-care (01) ==
LOC: ERS 11:11
DX: K74.60 Unspecified cirrhosis of liver (principal); D53.9 Nutritional anemia, unspecified; I10 Essential (primary) hypertension
CPT/HCPCS: 80053; 85025; 85060; 85610; 85730; 86850; 86900; 86901; 99284

== ENCOUNTER 2019-05-09 09:16 | Outpatient (CLI) | payer OTHER, SELFPAY ==
--- NOTE | 2019-05-09 10:06 | CT ---
CHEST CT WITH CONTRAST ABDOMEN CT WITH CONTRAST PELVIC CT WITH CONTRAST: HISTORY: Liver cancer. Evaluate response to therapy. Correlation: None. COMPARISON: 03/31/2019, 02/09/2019, 12/01/2018. FINDINGS: Chest CT: Mediastinum: No mass, lymphadenopathy or hematoma. There are stable nonenlarged mediastinal lymph nod es. Aorta: Scattered atherosclerosis. No change in caliber. Heart: Normal heart size. No significant pericardial fluid. Trachea and central bronchi: Patent. Pleural spaces: Small right-sided pleural effusion. Right lung: Enlarging solid round mass in the superior segment of the right lower lobe, abutting the major fissure measures 1.3 x 1.4 cm. Previously, this mass measured 1.0 x 1.0 cm. In December 16, this mass measured 0.5 x 0.6 cm in maximum dimension. Stable right lower lobe mass measures 0.9 x 0.8 cm, previously measuring 1.0 x 0.8 cm. Stable nodule in the right lower lobe measures 0.9 x 1.0 cm, previously measuring 0.9 x 1.0 cm. Stable parenchymal changes in the right lung base. Stable 0.7 x 0.9 cm nodule. Additional stable nodules are noted along the lateral aspect of the right lower lobe. Left lung:Redemonstration of a nodule in the left upper lobe, measuring 0.9 x 0.9 cm. Previously, thi s nodule measured 0.6 X 0.6 cm. Additional tree-in-bud opacities are redemonstrated in the left lower lobe. Pneumothorax: None. Abdomen CT: Gallbladder: Cholelithiasis without evidence of bladder wall thickening. However, there is persistent fluid in the gallbladder fossa. Portal vein: Patent. Liver: Persistent nodularity throughout the liver, compatible with cirrhosis. Redemonstration of an e xophytic mass emanating from the right hepatic lobe, at the level of the hepatic dome. This mass measures 6.9 cm cranial caudal by 4.8 cm mediolateral by 6.4 cm anterior-posterior. Stable hypodensit y in the left hepatic lobe. Additional smaller hypodensities in the right hepatic lobe are noted.. Spleen: Appropriate enhancement. Pancreas: Appropriate enhancement. Adrenal glands: Redemonstration of a left adrenal myolipoma. Lymphadenopathy: Enlarged gastrohepatic conglomeration of lymph nodes in the gastrohepatic ligament m easures 1.8 x 1.8 cm. No appreciable change. Stable nonspecific left periaortic lymph nodes, mildly enlarged. Representing a lymph node measures 1.3 x 0.9 cm. Kidneys: Symmetric enhancement of the kidneys. No obstructive uropathy. Mesentery: Stable free fluid in the abdomen. Stable mesenteric stranding. No free air. Alimentary canal: Gastric mucosa, duodenum and multiple normal caliber small bowel loops are identifi ed. Unremarkable ileocecal junction. Normal caliber appendix. Scattered fecal material in a nondistended, nondilated colon. Diverticulosis, without evidence of diverticulitis. Mucosal prominenc e of the left hemicolon is felt to be due to inadequate distention. Pelvis CT: Free fluid in the pelvis. No mass, lymphadenopathy or free air. Osseous structures:No lytic or blastic lesions in the osseous structures. IMPRESSION: 1. Findings suggesting progression of disease. Enlarging nodule in the left upper lobe, adjacent to t he left heart border. Enlarging nodule in the right lower lobe, abutting the major fissure. Additional nodules in the right lower lobe appear to be relatively stable. 2. Stable cirrhotic changes of the liver. Stable hypodensities in the hepatic parenchyma. Stable exop hytic masslike lesion emanating from the hepatic dome. 3. Cholelithiasis. 4. Stable left adrenal myolipoma. 5. Stable ascites. Transcribed Date/Time: 05/09/2019 10:37 AM
[2019-05-09] MEDS ORDERED: Iopamidol-370 76% 500 ML 1 ML ONE (15:46)
== END 2019-05-09 09:17 | disposition home or self-care (01) ==
LOC: BICCT 09:16
PROVIDERS: ATTEND Internal Medicine Hematology & Oncology
DX: C22.0 Liver cell carcinoma (principal); R91.8 Other nonspecific abnormal finding of lung field; K76.89 Other specified diseases of liver; K80.20 Calculus of gallbladder without cholecystitis without obstruction; D17.79 Benign lipomatous neoplasm of other sites; R18.8 Other ascites
CPT/HCPCS: 71260; 74177; Q9967

== ENCOUNTER 2019-05-13 10:21 | Day surgery (SDC) | payer OTHER ==
[2019-05-13] MEDS ORDERED: Sodium Chloride 0.9% 20 ML ONE (10:29)
[2019-05-13 10:53] VITALS: BP 144/65; TEMP 98.3
== END 2019-05-13 11:41 | disposition home or self-care (01) ==
LOC: ONC/OP 10:21
PROVIDERS: ATTEND Internal Medicine Hematology & Oncology
DX: Z51.11 Encounter for antineoplastic chemotherapy (principal); C22.0 Liver cell carcinoma
CPT/HCPCS: 96413

== ENCOUNTER 2019-05-27 08:28 | Day surgery (SDC) | payer SELFPAY ==
[2019-05-27] MEDS ORDERED: Sodium Chloride 0.9% 20 ML ONE (09:18)
[2019-05-27 11:39] VITALS: BP 129/63; TEMP 97.7
== END 2019-05-27 11:42 | disposition home or self-care (01) ==
LOC: ONC/OP 08:28
PROVIDERS: ATTEND Internal Medicine Hematology & Oncology
DX: Z51.12 Encounter for antineoplastic immunotherapy (principal); C22.0 Liver cell carcinoma
CPT/HCPCS: 96413

== ENCOUNTER 2019-06-09 08:25 | Day surgery (SDC) | payer OTHER, SELFPAY ==
[2019-06-09] MEDS ORDERED: Sodium Chloride 0.9% 20 ML ONE (08:38)
[2019-06-09 08:56] VITALS: BP 148/66; TEMP 98.3
== END 2019-06-09 10:43 | disposition home or self-care (01) ==
LOC: ONC/OP 08:25
PROVIDERS: ATTEND Internal Medicine Hematology & Oncology
DX: Z51.11 Encounter for antineoplastic chemotherapy (principal); C22.0 Liver cell carcinoma; K74.60 Unspecified cirrhosis of liver; E11.9 Type 2 diabetes mellitus without complications; I10 Essential (primary) hypertension; Z79.899 Other long term (current) drug therapy
CPT/HCPCS: 96413

== ENCOUNTER 2019-06-24 08:47 | Day surgery (SDC) | payer OTHER ==
[2019-06-23 16:01] VITALS: BMI 32.5
[2019-06-24 09:08] LABS: INR-International Normal Ratio 2.2; PTT 42.3 SEC (22.9-36.1); Prothrombin Time 24.5 SEC (12.0-14.7)
[2019-06-24] MEDS ORDERED: Lidocaine 1% PF 5 ML VIAL ONE (09:46)
[2019-06-24] MEDS ORDERED: Sodium Bicarbonate 2.5 MEQ/5 ML VIAL ONE (09:46)
[2019-06-24 10:45] VITALS: BP 118/66; TEMP 97.3
--- NOTE | 2019-06-24 11:33 | ULT ---
Sonographic guided paracentesis HISTORY: Recurrent ascites. FINDINGS: After explaining the procedure and answering all questions, sonographic survey shows a larg e amount of free fluid throughout the abdomen. Sterile technique, buffered local anesthesia, sonographic guidance, and a right lateral approach were used to carefully advance a 19-gauge Yueh nee dle and catheter into the free fluid. Catheter was left to drain a total volume of 4.8 L slightly cloudy orange liquid. Patient was limited to 4.8 L due to not having built of recent tolerance to homar inage. Catheter was removed with small amount of fluid remaining. Patient tolerated the procedure well and was dismissed in good condition. IMPRESSION : Technically successful sonographic guided paracentesis. 4.8 L.
== END 2019-06-24 10:25 | disposition home or self-care (01) ==
LOC: ULT 08:47
PROVIDERS: ATTEND Internal Medicine Hematology & Oncology
PROC: 0W9G3ZZ Drainage of Peritoneal Cavity, Percutaneous Approach (ICD-10-PCS; principal; 2019-06-24)
PROC: BW40ZZZ Ultrasonography of Abdomen (ICD-10-PCS; principal; 2019-06-24)
DX: K70.31 Alcoholic cirrhosis of liver with ascites (principal); C22.0 Liver cell carcinoma; I10 Essential (primary) hypertension; E11.9 Type 2 diabetes mellitus without complications; D64.9 Anemia, unspecified; Z79.899 Other long term (current) drug therapy
CPT/HCPCS: 36415; 49083; 85610; 85730; J2001

== ENCOUNTER 2019-07-04 09:25 | Emergency (ER) | payer OTHER ==
[~2019-07-04 09:25] MED LIST changes: -NIVOLUMAB IVPB SCH; -SODIUM CHLORIDE 0.9% IVPB SCH; +Succinylcholine Chloride 20 MG/ML 10 ml SYRINGE FS ONE
[2019-07-04] MEDS ORDERED: EPINEPHrine 1 MG/10 ML Abboject SYRINGE ONE (13:45)
== END 2019-07-04 09:37 | disposition expired ==
LOC: ERS 09:25
DX: I46.9 Cardiac arrest, cause unspecified (principal); K21.9 Gastro-esophageal reflux disease without esophagitis; I10 Essential (primary) hypertension; Z79.899 Other long term (current) drug therapy
CPT/HCPCS: 31500; 36680; 92950; 96374; J0171; U0001